=== PATIENT | female | born 1965 | race Caucasian/White ===

== ENCOUNTER 2016-12-26 03:55 | Emergency (ER) | payer OTHER ==
[~2016-12-26] VITALS: Ht 172.7 cm; Wt 90.7 kg
[~2016-12-26 03:55] MED LIST: ABILIFY10 MG PO; AMITRIPTYLINE25 MG PO; ASPIRIN81 M1 PO; BENADRYL50 MG PO; CELEXA10 MG PO; CELEXA20 MG PO; CELEXA40 MG PO; CLARITIN10 MG PO; COLACE100 M1 PO; COLACE250 MG PO; DEPAKOTE ER500 MG PO; DEPAKOTE500 M1 PO; DESYREL50 MG PO; DETROL LA4 MG PO; DITROPAN XL15 MG PO; DITROPAN5 MG PO; ELAVIL25 MG PO; FERROUS SULFAT325 MG PO; FLOVENT HF110 MCG/AC INH; HYDROCODONE BIT1 T55 PO; ISOSORBIDE DINIT PO; KLONOPIN0.5 MG PO; KLONOPIN1 MG PO; LASIX20 MG PO; LOPRESSOR25 MG PO; LYRICA75 MG PO; MIRAPEX0.25 MG PO; MIRAPEX0.5 MG PO; MOTRIN800 MG PO; NITROSTAT0.4 M1 SL; NORCO 5/325 MG1 TAB PO; NORTRIPTYLINE25 MG PO; ONE DAILY1 TA1 PO; OXYBUTYNIN5 M1 PO; PAMELOR25 M1 PO; PRILOSEC40 MG PO; QVAR HFA M80 MCG/ACT IH; RESTORIL15 MG PO; RESTORIL30 MG PO; ROBAXIN-750750 M1 PO; ROBAXIN-750750 MG PO; SEROQUEL XR400 MG PO; SEROQUEL100 MG PO; SEROQUEL200 MG PO; SEROQUEL400 MG PO; SEROQUEL50 MG PO; SYNTHROID0.075 MG PO; SYNTHROID0.088 MG PO; TOPAMAX25 M1 PO; TRAZADONE HYDR100 MG PO; TRAZODONE150 M1 PO; VENTOLIN H0.09 MG/Ac IH; ZANAFLEX CAPSULE4 MG PO; ZOCOR20 MG PO; ZOLOFT100 MG PO
--- NOTE | 2016-12-26 03:56 | NUR ---
PT MICHELA PIÑAS. TAKEN TO BED 4
[2016-12-26 03:58] VITALS: BP 144/76
[2016-12-26] MEDS ORDERED: SEROQUEL400 MG PO (04:22)
[2016-12-26] MEDS ORDERED: COLACE100 M1 PO (04:22)
[2016-12-26] MEDS ORDERED: PRILOSEC20 M2 PO (04:22)
[2016-12-26] MEDS ORDERED: DITROPAN5 MG PO (04:22)
[2016-12-26] MEDS ORDERED: SYNTHROID0.088 MG PO (04:22)
[2016-12-26] MEDS ORDERED: DEPAKOTE ER500 MG PO (04:22)
[2016-12-26] MEDS ORDERED: DILAUDID2 MG PO (04:22)
[2016-12-26] MEDS ORDERED: ROBAXIN-750750 MG PO ×2 (04:22)
[2016-12-26] MEDS ORDERED: DOXEPIN50 MG PO (04:22)
[2016-12-26] MEDS ORDERED: PAMELOR25 M1 PO (04:22)
[2016-12-26] MEDS ORDERED: OYSTER SHELL 51 EACH PO (04:22)
[2016-12-26] MEDS ORDERED: NEURONTIN600 MG PO (04:22)
[2016-12-26] MEDS ORDERED: KLONOPIN1 MG PO (04:22)
--- NOTE | 2016-12-26 04:44 | NUR ---
51/F biba from home c/o generalized weakness, arms trembling. Pt states "Look, my hands keep shaking." AOX4, clear speech. VSS.
--- NOTE | 2016-12-26 04:50 | NUR ---
Dr. Mcdaniel evaluating patient at bedside.
--- NOTE | 2016-12-26 05:37 | NUR ---
X-Ray at bedside.
[2016-12-26] MEDS ORDERED: HYDROmorphone 1 MG/ML AMP IVP ONE (05:55)
[2016-12-26] MEDS ORDERED: HYDROmorphone PFS 2 MG/ML SYR ONE (06:05)
--- NOTE | 2016-12-26 06:34 | NUR ---
DR. WOODS RE-EVALUATING PATIENT AT BEDSIDE.
[2016-12-26 06:51] VITALS: BP 147/93
--- NOTE | 2016-12-26 06:57 | NUR ---
Patient discharged with v/s stable. Written and verbal after care instructions given and explained. Patient alert, oriented and verbalized understanding of instructions. Ambulatory with steady gait. All questions addressed prior to discharge. ID band removed. Patient advised to follow up with PMD. Rx of CIPROFLOXACIN 500MG BID given. Patient educated on indication of medication including possible reaction and side effects. Opportunity to ask questions provided and answered.
[2016-12-29] MEDS ORDERED: SYNTHROID0.088 MG PO (13:26)
[2016-12-29] MEDS ORDERED: COUMADIN2 M1 PO (13:34)
[2016-12-29] MEDS ORDERED: ATORVASTATIN CA20 MG PO (13:34)
[2016-12-29] MEDS ORDERED: DEPAKOTE ER500 MG PO (13:35)
[2016-12-29] MEDS ORDERED: ASPIRIN ADULT L81 M1 PO (13:37)
== END 2016-12-26 06:57 | disposition home or self-care (01) ==
LOC: MED 03:55
DX: N39.0 Urinary tract infection, site not specified (principal); F31.9 Bipolar disorder, unspecified; J45.909 Unspecified asthma, uncomplicated; E11.9 Type 2 diabetes mellitus without complications; E05.90 Thyrotoxicosis, unspecified without thyrotoxic crisis or storm; Z88.0 Allergy status to penicillin; Z88.5 Allergy status to narcotic agent; Z88.8 Allergy status to other drugs, medicaments and biological substances; Z79.899 Other long term (current) drug therapy
CPT/HCPCS: 36415; 71010; 80053; 81001; 85025; 87086; 96374; 99285; J1170; Q0092

== ENCOUNTER 2016-12-26 09:03 | Inpatient (IN) | payer OTHER ==
[~2016-12-26] VITALS: Ht 172.7 cm; Wt 113.4 kg
[~2016-12-26 09:03] MED LIST changes: -ABILIFY10 MG PO; +ACET-3820 PO; +ALBU0.0912 IH; -AMITRIPTYLINE25 MG PO; +ASPI81CT89 PO; -ASPIRIN81 M1 PO; +BECL0.089 IH; -BENADRYL50 MG PO; +CALC-1380 PO; -CELEXA10 MG PO; -CELEXA20 MG PO; -CELEXA40 MG PO; -CLARITIN10 MG PO; +CLON1TAB PO; -COLACE100 M1 PO; -COLACE250 MG PO; -DEPAKOTE ER500 MG PO; -DEPAKOTE500 M1 PO; -DESYREL50 MG PO; -DETROL LA4 MG PO; +DIT5 PO; -DITROPAN XL15 MG PO; -DITROPAN5 MG PO; +DIVA500T1 PO; +DOCU-67 PO; +DOXE50CA10 PO; +ELA25 PO; -ELAVIL25 MG PO; -FERROUS SULFAT325 MG PO; -FLOVENT HF110 MCG/AC INH; +GABA600T1 PO; +HYDR2TAB6 PO; -HYDROCODONE BIT1 T55 PO; +IBUP-974 PO; +ISOS5TAB7 PO; -ISOSORBIDE DINIT PO; -KLONOPIN0.5 MG PO; -KLONOPIN1 MG PO; -LASIX20 MG PO; +LEVO0.083 PO; -LOPRESSOR25 MG PO; +LORA10TA19 PO; -LYRICA75 MG PO; +METH750T5 PO; +METO25TA PO; -MIRAPEX0.25 MG PO; -MIRAPEX0.5 MG PO; -MOTRIN800 MG PO; +NITR0.4T2 SL; -NITROSTAT0.4 M1 SL; -NORCO 5/325 MG1 TAB PO; -NORTRIPTYLINE25 MG PO; +OMEP20TC5 PO; +OMEP40EC1 PO; -ONE DAILY1 TA1 PO; -OXYBUTYNIN5 M1 PO; +PAM25 PO; -PAMELOR25 M1 PO; -PRILOSEC40 MG PO; +QUET400T PO; -QVAR HFA M80 MCG/ACT IH; -RESTORIL15 MG PO; -RESTORIL30 MG PO; -ROBAXIN-750750 M1 PO; -ROBAXIN-750750 MG PO; -SEROQUEL XR400 MG PO; -SEROQUEL100 MG PO; -SEROQUEL200 MG PO; -SEROQUEL400 MG PO; -SEROQUEL50 MG PO; +SIMV20TA1 PO; -SYNTHROID0.075 MG PO; -SYNTHROID0.088 MG PO; +TEMA30CA23 PO; -TOPAMAX25 M1 PO; -TRAZADONE HYDR100 MG PO; -TRAZODONE150 M1 PO; -VENTOLIN H0.09 MG/Ac IH; -ZANAFLEX CAPSULE4 MG PO; -ZOCOR20 MG PO; -ZOLOFT100 MG PO; +[UNRECOGNIZED DRUG - CODE] PO
--- NOTE | 2016-12-26 09:03 | NUR ---
Patient BIBA to bed 6 at this time.
[2016-12-26 09:05] VITALS: BP 146/102
--- NOTE | 2016-12-26 09:06 | NUR ---
51F BIBA FROM HOME C/O LACERATION TO RT CHIN, SHARP, NON-RADIATING, 10/10 X THIS MORNING; NO BLEEDING NOTED TO SITE AT THIS TIME; PT STATES LOC "FOR ABOUT A MINUTE"; DENIES VISION LOSS OR VISION CHANGES AT THIS TIME; PT NOTED W/ LAC TO RT CHIN, RED DISCOLORATION TO LFT EYELID/LFT EAR, SCRAPE TO RT ARM FROM FALL; NO BLEEDING TO SCRAPE AT THIS TIME; PT HAS AMPUTATION BELOW LFT KNEE W/ ARTIFICIAL LEFT LEG NOTED; PT NOTED W/ SWELLING TO RT ANKLE, NON-PITTING; PT STATES "I'VE HAD THAT FOR A LONG TIME"; PT STATES SEEN IN [facility] ER FOR UTI AND D/C THIS MORNING; PT A&OX4, PERRLA, BL LUNG SOUNDS CLEAR, RR EVEN/UNLABORED, DENIES N/V/D AT THIS TIME; PT RESTING IN BED W/ HOB ELEVATED AND IN LOWEST POSITION; POSITIONED FOR COMFORT; ER MD MADE AWARE OF STATUS. WILL CONTINUE TO MONITOR.
[2016-12-26] MEDS ORDERED: LIDOCAINE 1% 500 MG/50 ML VIAL INJ ONE (09:10)
--- NOTE | 2016-12-26 09:20 | NUR ---
ER MD DR PAML AT BEDSIDE FOR LACERATION REPAIR.
[2016-12-26] MEDS ORDERED: NEOMYCIN/POLYMYXIN/BACITRACIN 0.9 GM/1 PKT TP ONE (09:34)
--- NOTE | 2016-12-26 09:58 | NUR ---
PT TAKEN TO CT VIA GURMINOO ACCOMPANIED BY [facility] AT THIS TIME.
--- NOTE | 2016-12-26 10:24 | NUR ---
PT RETURNED FROM CT VIA RNEY ACCOMPANIED BY [facility].
[2016-12-26] MEDS ORDERED: ACETAMINOPHEN 325 MG TAB PO PRN (10:50)
[2016-12-26] MEDS ORDERED: HYDROcodone/APAP 7.5/325 MG 1 TAB PO PRN (10:50)
[2016-12-26] MEDS ORDERED: MECLIZINE 25 MG TAB PO PRN (10:50)
[2016-12-26] MEDS ORDERED: ONDANSETRON 4 MG/2 ML VIAL IVP PRN (10:50)
[2016-12-26 11:19] LABS: HEMATOCRIT 36.4 % (36-48); MEAN CORPUSCULAR HEMOGLOBIN 33 pg (27-31); MEAN CORPUSCULAR HGB CONC 33 g/dL (33-37); MEAN CORPUSCULAR VOLUME 100 fL (80-94); PLATELET COUNT (AUTO) 126 K/uL (140-450); RED BLOOD CELL COUNT(AUTO) 3.64 MIL/uL (4.20-5.40); RED CELL DISTRIBUTION WIDTH 13.4 % (11.6-13.7); WHITE BLOOD COUNT (AUTO) 7.3 K/uL (4.8-10.8)
[2016-12-26 11:30] LABS: ANION GAP 12.1 (8-16); CALCIUM 8.9 mg/dL (8.5-10.1); CARBON DIOXIDE 28.1 mmol/L (21-32); CREATININE 0.9 mg/dL (0.6-1.3); POTASSIUM 4.2 mmol/L (3.5-5.1)
[2016-12-26 11:33] LABS: BAND % (MANUAL) 10 % (0-8); LYMPHOCYTES % (MANUAL) 14 % (20-46); MONOCYTES % (MANUAL) 4 % (5-12); NEUTROPHILS % (MANUAL) 72 (43-65)
--- NOTE | 2016-12-26 11:33 | NUR ---
REPORT GIVEN TO JOSE LUIS TREVIÑO; PT TO BE TAKEN TO FLOOR IN 10 MINUTES NURSE ASSIGNED TO PT ON BREAK.
[2016-12-26 11:36] LABS: INR 1.1 (0.8-1.2); PARTIAL THROMBOPLASTIN TIME 27.4 secs (22-35.6); PROTHROMBIN TIME 10.3 secs (10.8-13.4)
[2016-12-26 11:45] LABS: ALBUMIN 3.2 g/dL (3.4-5.0); TOTAL BILIRUBIN 0.4 mg/dL (0.0-1.0); TOTAL PROTEIN, SERUM 6.9 g/dL (6.4-8.2)
--- NOTE | 2016-12-26 11:46 | NUR ---
Patient will be admitted to care of DR. CHRISTENSEN. Admited to TELEMETRY . Will go to room 107B. Belongings list completed. Report to JOSE LUIS TREVIÑO.
[2016-12-26 12:00] VITALS: BP 134/87
--- NOTE | 2016-12-26 12:00 | NUR ---
RECEIVED PT FROM ER ASSISTED BY RN STACY RANDALL. AWAKE, ALERT, ORIENTED X4. NO SOB NOTED. DENIES ANY PAIN OR DISCOMFORT AT THIS TIME. POSITIVE BOWEL SOUNDS NOTED ON 4 QUADRANTS. TELEBOX MONITOR PADS ATTACHED. HOOKED TO IVF. BODY ASSESSMENT DONE, PHOTOS TAKEN FOR RIGHT CHIN LACERATION WITH 5 STICHES, AND BOTH LEFT AND RIGHT EAR ABRASIONS. SAFETY PRECAUTION IN PLACE. CALL LIGHT WITHIN REACH. OFF BONY PROMINENCE. REPOSITIONED TO PT COMFORT.
[2016-12-26 12:02] LABS: CHOL/HDL RATIO 4.4 (1-4.5); FREE T4 (FREE THYROXINE) 0.72 ng/dL (0.76-1.46); MAGNESIUM 1.7 mg/dL (1.8-2.4); PHOSPHORUS 3.2 mg/dL (2.5-4.9); THYROID STIMULATING HORMONE 9.08 uIU/mL (0.34-3.76)
--- NOTE | 2016-12-26 13:00 | NUR ---
FREQUENT VISUAL CHECKS DONE. OFFERED PT BEDPAN NEEDED. PT VOIDED CLEAR YELLOW URINE, WITH URGENCY AND FREQUENCY.
[2016-12-26] MEDS: NACL 0.9% 1,000 ML IV SCH (13:09)
[2016-12-26] MEDS ORDERED: ALBUTEROL SULFATE/IPRATROPIU 3 ML SOL IH PRN (13:20)
[2016-12-26 14:41] LABS: AMPHETAMINE, URINE NEG. ng/ml (NEG <=1000); BARBITURATE, URINE NEG. ng/ml (NEG <=200); BENZODIAZEPINE, URINE NEG. ng/mL (NEG <=200); CANNABINOID, URINE NEG. ng/mL (NEG <=50); COCAINE, URINE NEG. ng/mL (NEG <=300); OPIATE, URINE NEG. ng/mL (NEG <=2000); PHENCYCLIDINE SCREEN,URINE NEG. ng/mL (NEG <=25)
[2016-12-26] MEDS ORDERED: MAGNESIUM OXIDE 400 MG TAB PO SCH (15:00)
[2016-12-26] MEDS ORDERED: clonazePAM 0.5 MG TAB PO PRN (15:15)
--- NOTE | 2016-12-26 15:30 | NUR ---
IV ON LEFT WRIST G24 GOT DISLODGED. NO BLEEDING NOTED. CANNULA REMOVED AND INTACT. REINSERTED IV ON RIGHT HAND G24 NS RUNNING AT 50 ML /HR. PATENT AND INTACT.
[2016-12-26] MEDS ORDERED: LORazepam 2 MG/ML VIAL IM/IVP PRN (15:35)
[2016-12-26 16:00] VITALS: BP 115/77
[2016-12-26] MEDS: HYDROmorphone 1 MG/ML AMP IVP PRN ×2 (16:12→21:04)
[2016-12-26] MEDS: OXYBUTYNIN 5 MG TAB PO SCH (17:36)
--- NOTE | 2016-12-26 19:25 | NUR ---
PT AWAKE, IN BED, WATCHING TV. NO SOB NOTED. DENIES ANY PAIN OR DISCOMFORT AT THIS TIME. PT KEPT CLEAN, DRY AND COMFORTABLE, NEEDS ATTENDED. PT ON STABLE CONDITION. ENDORSED TO TAXICAB STARTER FOR CONTINUITY OF CARE.
--- NOTE | 2016-12-26 19:30 | NUR ---
RECEIVED REPORT FROM DAY RN AT BEDSIDE, PATIENT IS AAOX4, RESTING IN BED ON ROOM AIR, NO SOB OR SIGN OF DISTRESS, IV PATENT AND INTACT, SKIN NON-INTACT, 3 STITCHES NOTED TO PATIENTS CHIN, INTACT NO DRAINAGE, MULTIPLE BRUISES TO PATIENTS BODY S/P FALLS, NOTED LEFT BELOW KNEE AMPUTATION WITH PROSTHESIS. SWELLING TO THE RIGHT LEG. PATIENT COMPLAINS OF PAIN TO BACK AND RIGHT LEG AND FACE STATING FROM FALL.WILL MEDICATE, DISCUSSED PLAN OF CARE WITH PATIENT, PATIENT VERBALIZED UNDERSTANDING, CALL LIGHT WITHIN REACH. WILL CONTINUE TO MONITOR.
[2016-12-26 20:00] VITALS: BP 119/70
[2016-12-26] MEDS ORDERED: DOCUSATE SODIUM 100 MG GELCAP PO SCH (21:00)
[2016-12-26] MEDS: QUEtiapine FUMARATE 100 MG TAB PO SCH (21:02)
[2016-12-26] MEDS: DOCUSATE SODIUM 100 MG GELCAP PO SCH (21:03)
[2016-12-26] MEDS: CALCIUM CARB/VIT-D 500 MG/200 IU 1 TAB PO SCH (21:03)
[2016-12-26] MEDS: DIVALPROEX 500 MG TABER PO SCH (21:04)
--- NOTE | 2016-12-26 21:18 | NUR ---
PM MEDS ADMINISTERED, PATIENT TOLERATED WELL, WILL CONTINUE TO MONITOR
--- NOTE | 2016-12-26 21:40 | NUR ---
PAGED DR CHRISTENSEN, PATIENT REQUESTING A HOME MEDICATION TO HELP HER SLEEP. DR CHRISTENSEN STATED TO PUT IN A TELEPHONE ORDER FOR PATIENT'S HOME MEDICATION DOXEPIN 100MG PO HS DAILY, CLARIFIED WITH DR ABOUT PUTTING IN ORDERS FOR FR DALIA GROUP DR CHRISTENSEN STATED IT WAS OKAY AND HE IS GIVING ME THE OKAY TO PUT IN THE TELEPHONE ORDER.
[2016-12-26] MEDS: DOXEPIN 25 MG CAP PO SCH (21:45)
[2016-12-27] VITALS: BP 103/63
--- NOTE | 2016-12-27 00:20 | NUR ---
VITAL SIGNS STABLE, NO SOB OR SIGN OF DISTRESS AT THIS TIME, CALL LIGHT WITHIN REACH. WILL CONTINUE TO MONITOR
--- NOTE | 2016-12-27 02:32 | NUR ---
PATIENT SLEEPING, NO SIGN OF DISTRESS, CALL LIGHT WITHIN REACH. WILL CONTINUE TO MONITOR.
[2016-12-27] MEDS: HYDROmorphone 1 MG/ML AMP IVP PRN ×5 (02:50→16:24)
[2016-12-27 04:00] VITALS: BP 112/62
--- NOTE | 2016-12-27 04:20 | NUR ---
VITAL SIGNS STABLE, NO SOB OR SIGN OF DISTRESS, CALL LIGHT WITHIN REACH. WILL CONTINUE TO MONITOR.
[2016-12-27] MEDS: LEVOTHYROXINE 0.088 MG TAB PO SCH (06:37)
[2016-12-27] MEDS: NACL 0.9% 1,000 ML IV SCH ×2 (06:49→12:45)
[2016-12-27 07:17] LABS: BASOPHILS # (AUTO) 0.1 K/uL (0.00-0.22); BASOPHILS % (AUTO) 1.8 % (0.0-2.0); EOSINOPHILS % (AUTO) 0.7 % (0.0-4.0); HEMATOCRIT 34.3 % (36-48); HEMOGLOBIN 11.3 g/dL (12.0-16.0); LYMPHOCYTES # (AUTO) 1.4 K/uL (2.5-16.5); LYMPHOCYTES % (AUTO) 30.4 % (20.5-51.1); MEAN CORPUSCULAR HEMOGLOBIN 33 pg (27-31); MEAN CORPUSCULAR HGB CONC 33 g/dL (33-37); MEAN CORPUSCULAR VOLUME 99 fL (80-94); MONOCYTES # (AUTO) 0.3 K/uL (0.8-1.0); MONOCYTES % (AUTO) 6.6 % (1.7-9.3); NEUTROPHILS # (AUTO) 2.7 K/uL (1.8-7.7); NEUTROPHILS % (AUTO) 60.5 % (42.2-75.2); PLATELET COUNT (AUTO) 145 K/uL (140-450); RED BLOOD CELL COUNT(AUTO) 3.46 MIL/uL (4.20-5.40); RED CELL DISTRIBUTION WIDTH 13.6 % (11.6-13.7); WHITE BLOOD COUNT (AUTO) 4.5 K/uL (4.8-10.8)
--- NOTE | 2016-12-27 07:30 | NUR ---
ENDORSED PATIENT TO DAY RN AT BEDSIDE, PATIENT IN STABLE CONDITION
--- NOTE | 2016-12-27 07:32 | NUR ---
RECEIVED REPORT FROM NIGHT JOSE LUIS PAGE. PT SLEEPING IN BED. NO S/S OF ACUTE DISTRESS. PT DENIES PAIN. IV SITE PATENT AND INTACT. LEFT BKA NOTED. BAND AID TO CHIN NOTED. DRY AND INTACT. BRUISE UNDER RIGHT EYE NOTED. RIGHT LEG SWELLING. TELE BOX IN PLACE. CALL LIGHT WITHIN REACH. SAFETY MEASURES ENSURED. WILL CONTINUE TO MONITOR.
[2016-12-27 07:35] LABS: ANION GAP 10.5 (8-16); CALCIUM 8.7 mg/dL (8.5-10.1); CARBON DIOXIDE 29.2 mmol/L (21-32); POTASSIUM 3.7 mmol/L (3.5-5.1)
[2016-12-27 07:40] VITALS: BP 107/64
[2016-12-27 07:40] LABS: MAGNESIUM 1.8 mg/dL (1.8-2.4); PHOSPHORUS 3.2 mg/dL (2.5-4.9)
[2016-12-27] MEDS ORDERED: PANTOPRAZOLE 40 MG TABEC PO SCH (08:00)
[2016-12-27] MEDS ORDERED: PANTOPRAZOLE 40 MG INJ VIAL IVP SCH (09:00)
[2016-12-27] MEDS: OXYBUTYNIN 5 MG TAB PO SCH ×3 (09:31→17:21)
[2016-12-27] MEDS: PANTOPRAZOLE 40 MG TABEC PO SCH (09:31)
--- NOTE | 2016-12-27 09:40 | NUR ---
PT RESTING IN BED. RAILROAD INSPECTOR JOHN AT BEDSIDE. PT STATES PAIN 10/10 IN HER BACK. MEDICATED ORDERED. PT REPOSITIONED BEST POSSIBLE DUE TO ECHO. AM MEDICATIONS GIVEN WITH EDUCATION. PT VERBALIZED UNDERSTANDING. CALL LIGHT WITHIN REACH. SAFETY MEASURES ENSURED. WILL CONTINUE TO MONITOR.
--- NOTE | 2016-12-27 09:57 | NUR ---
FAXED INITIAL REVIEW TO [facility] [phone] PHONE [phone] LOKI Colon [id number] ABDELRAHMAN [id number]
--- NOTE | 2016-12-27 10:06 | NUR ---
PATIENT HAS BEEN SCREENED AND CATEGORIZED LOW NUTRITION RISK. PATIENT WILL BE SEEN WITHIN 7 DAYS OF ADMISSION. 01/01/[address] Addendum: 12/27/16 at [address] PATIENT HAS BEEN RE-SCREENED AND MEETS MODERATE RISK CRITERIA. PATIENT WILL BE SEEN WITHIN 5 DAYS OF ADMISSION. 12/28/16-12/30/[address]
--- NOTE | 2016-12-27 11:37 | NUR ---
PT SLEEPING IN BED. NO S/S OF ACUTE DISTRESS. CALL LIGHT WITHIN REACH. SAFETY MEASURES ENSURED. WILL CONTINUE TO MONITOR.
[2016-12-27 11:41] LABS: APPEARANCE,URINE HAZY (CLEAR); BILIRUBIN,URINE NEGATIVE (NEGATIVE); BLOOD, URINE NEGATIVE (NEGATIVE); COLOR,URINE YELLOW (YELLOW); LEUKOCYTE ESTERASE ,URINE TRACE (NEGATIVE); NITRITE, URINE POSITIVE (NEGATIVE); PH,URINE 7.5 (5.0-9.0); PROTEIN,URINE NEGATIVE (NEGATIVE); UGLUCOSE NEGATIVE (NEGATIVE); UROBILINOGEN,URINE 0.2 EU/dL (0.2 - 1)
[2016-12-27 11:57] LABS: BACTERIA,URINE 4+ /HPF (None Seen); RBC,URINE NONE SEEN /HPF (0-5)
[2016-12-27 11:58] LABS: SQUAMOUS EPITHELIAL CELL,UR 4-10 (MOD) /LPF (0-3 (FEW))
[2016-12-27 12:00] VITALS: BP 134/86
--- NOTE | 2016-12-27 12:16 | NUR ---
PHYSICAL THERAPY IN WITH PT. PT ASSISTED TO CHAIR AT BEDSIDE TO EAT LUNCH.
[2016-12-27] MEDS ORDERED: LACTOBACILLUS RHAMNOSUS GG 1 EACH CAP PO SCH (14:27)
[2016-12-27 16:00] VITALS: BP 119/73
--- NOTE | 2016-12-27 16:55 | NUR ---
PT SLEEPING IN BED. NO S/S OF ACUTE DISTRESS. CALL LIGHT WITHIN REACH. SAFETY MEASURES ENSURED. WILL CONTINUE TO MONITOR.
[2016-12-27] MEDS: FERROUS SULFATE 325 MG TABEC PO SCH (17:22)
--- NOTE | 2016-12-27 19:28 | NUR ---
ENDORSED PLAN OF CARE TO NIGHT RN. PT REMAINS IN STABLE CONDITION.
--- NOTE | 2016-12-27 19:30 | NUR ---
RECEIVED REPORT FROM DAY RN AT BEDSIDE, PATIENT IS RESTING IN BED AAOX4 ON ROOM AIR NO SOB OR SIGN OF DISTRESS AT THIS TIME, PATIENT HAS IV TO RIGHT HAND PATENT AND INTACT. SKIN NON INTACT WITH STITCHES TO CHIN, COVERED WITH BAND-AID DRY AND INTACT. BRUISING TO FACE AND EAR. RIGHT LEG SWELLING NOTED. PREVIOUS LEFT LEG BELOW KNEE AMPUTATION WITH PROSTHETIC LEG. PATIENT STATES SHE HAS PAIN, WILL MEDICATE PER MD ORDER, DISCUSSED PLAN OF CARE WITH PATIENT, PATIENT VERBALIZED UNDERSTANDING, SAFETY MEASURES CHECKED, BED ALARM ON, CALL LIGHT WITHIN REACH. WILL CONTINUE TO MONITOR.
[2016-12-27 20:00] VITALS: BP 95/56
[2016-12-27] MEDS: ATORVASTATIN 20 MG TAB PO SCH (20:13)
[2016-12-27] MEDS: QUEtiapine FUMARATE 100 MG TAB PO SCH (20:13)
[2016-12-27] MEDS: DIVALPROEX 500 MG TABER PO SCH (20:14)
[2016-12-27] MEDS: CALCIUM CARB/VIT-D 500 MG/200 IU 1 TAB PO SCH (20:14)
[2016-12-27] MEDS: DOCUSATE SODIUM 100 MG GELCAP PO SCH (20:14)
[2016-12-27] MEDS: DOXEPIN 25 MG CAP PO SCH (20:15)
--- NOTE | 2016-12-27 20:26 | NUR ---
PM MEDS ADMINISTERED, PATIENT TOLERATED WELL, PATIENT RESTING IN BED, CALL LIGHT WITHIN REACH. WILL CONTINUE TO MONITOR
--- NOTE | 2016-12-27 22:30 | NUR ---
PATIENT SLEEPING, NO SIGN OF DISTRESS, CALL LIGHT WITHIN REACH. WILL CONTINUE TO MONITOR.
[2016-12-28] VITALS (7 sets, daily range): BP systolic 88–134; BP diastolic 58–83
--- NOTE | 2016-12-28 | NUR ---
VITAL SIGNS STABLE, NO SIGN OF DISTRESS, CALL LIGHT WITHIN REACH. WILL CONTINUE TO MONITOR
--- NOTE | 2016-12-28 02:19 | NUR ---
PATIENT SLEEPING, NO SIGN OF DISTRESS, CALL LIGHT WITHIN REACH. WILL CONTINUE TO MONITOR.
[2016-12-28] MEDS ORDERED: NACL 0.9% 1,000 ML IV SCH (04:35)
--- NOTE | 2016-12-28 04:35 | NUR ---
CHECKED PATIENT'S VITAL SIGNS, BP LOW AT 88/61 HR 83. RECHECKED ON OTHER ARM BP DROPPED TO 78/56, PATIENT ASYMPTOMATIC, AAOX4, STATED SHE HAD A LITTLE DIZZINESS BUT FELT FINE, PAGED DR CHRISTENSEN, RECEIVED ORDERS TO GIVE 1L NORMAL SALINE BOLUS ONE TIME AND TO HOLD OFF ON BLOOD PRESSURE MEDS AND PAIN MEDS AT THIS TIME. DR CHRISTENSEN GAVE THE OKAY TO PUT IN THE TELEPHONE ORDER. WILL FOLLOW UP WITH ORDER AND MONITOR PATIENT.
[2016-12-28] MEDS: LEVOTHYROXINE 0.088 MG TAB PO SCH (05:46)
--- NOTE | 2016-12-28 05:58 | NUR ---
BOLUS FINISHED RECHECKED BLOOD PRESSURE, AT 101/56 HR 73. PATIENT RESTING IN BED, WILL CONTINUE TO MONITOR.
--- NOTE | 2016-12-28 07:20 | NUR ---
ENDORSED PATIENT TO DAY RN AT BEDSIDE, PATIENT IN STABLE CONDITION
--- NOTE | 2016-12-28 07:22 | NUR ---
RECEIVED REPORT FROM NIGHT RN. PT SLEEPING IN BED. NO S/S OF ACUTE DISTRESS. . AAOX4. LEFT BKA. RIGHT LEG SWELLING NOTED. IV SITE PATENT AND INTACT. BRUISING TO RIGHT EYE NOTED. BANDAGE TO CHIN DRY AND INTACT. CALL LIGHT WITHIN REACH. SAFETY MEASURES ENSURED. WILL CONTINUE TO MONITOR.
[2016-12-28 07:26] LABS: ANION GAP 13.2 (8-16); CALCIUM 8.2 mg/dL (8.5-10.1); CREATININE 0.8 mg/dL (0.6-1.3); POTASSIUM 4.2 mmol/L (3.5-5.1)
[2016-12-28 07:50] LABS: BASOPHILS # (AUTO) 0.2 K/uL (0.00-0.22); EOSINOPHILS # (AUTO) 0.1 K/uL (0-0.4); MONOCYTES # (AUTO) 0.2 K/uL (0.8-1.0)
[2016-12-28 08:23] LABS: BASOPHILS % (AUTO) 4.4 % (0.0-2.0); EOSINOPHILS % (AUTO) 3.4 % (0.0-4.0); HEMATOCRIT 31.8 % (36-48); HEMOGLOBIN 10.7 g/dL (12.0-16.0); LYMPHOCYTES # (AUTO) 1.6 K/uL (2.5-16.5); LYMPHOCYTES % (AUTO) 41.9 % (20.5-51.1); MEAN CORPUSCULAR HEMOGLOBIN 34 pg (27-31); MEAN CORPUSCULAR HGB CONC 34 g/dL (33-37); MEAN CORPUSCULAR VOLUME 99 fL (80-94); MONOCYTES % (AUTO) 6.7 % (1.7-9.3); NEUTROPHILS # (AUTO) 1.6 K/uL (1.8-7.7); NEUTROPHILS % (AUTO) 43.6 % (42.2-75.2); PLATELET COUNT (AUTO) 100 K/uL (140-450); RED CELL DISTRIBUTION WIDTH 13.5 % (11.6-13.7); WHITE BLOOD COUNT (AUTO) 3.7 K/uL (4.8-10.8)
[2016-12-28] MEDS: PANTOPRAZOLE 40 MG TABEC PO SCH (08:26)
[2016-12-28] MEDS: ASPIRIN 81 MG TAB.CHEW PO SCH (08:26)
[2016-12-28] MEDS: OXYBUTYNIN 5 MG TAB PO SCH ×3 (08:26→16:34)
--- NOTE | 2016-12-28 08:26 | NUR ---
AM MEDICATIONS GIVEN WITH EDUCATION. PT VERBALIZED UNDERSTANDING. NO S/S OF ACUTE DISTRESS. PT TOLERATED WELL. WILL CONTINUE TO MONITOR.
[2016-12-28] MEDS: LACTOBACILLUS RHAMNOSUS GG 1 EACH CAP PO SCH (08:27)
[2016-12-28] MEDS: FERROUS SULFATE 325 MG TABEC PO SCH ×2 (08:27→16:34)
[2016-12-28 08:56] LABS: MAGNESIUM 1.8 mg/dL (1.8-2.4); PHOSPHORUS 3.9 mg/dL (2.5-4.9)
--- NOTE | 2016-12-28 09:58 | NUR ---
FAXED CONCURRENT REVIEW TO [facility] [phone] PHONE [phone] LOKI [id number] ABDELRAHMAN [id number] JAMES, PATIENT SUPPORT SPECIALIST SPOKE WITH LOKI ABOUT CAM BOOT AND SNF. [email or web address] [employer] [facility] . [facility], [facility]
--- NOTE | 2016-12-28 10:28 | NUR ---
FAXED CONCURRENT REVIEW TO [facility] [phone] PHONE [phone] X [phone] LOKI [employer] CALLED FOR CAM BOOT. PER JUSTIN , THEY DO NOT DO BOOTS. LEFT MESSAGE FOR LOKI AT [facility].
--- NOTE | 2016-12-28 11:16 | NUR ---
SPOKE WITH YUAN FROM [facility]. FOR THE CAM BOOT, TRY [facility] [phone]. I CALLED AND SPOKE WITH DAVID AND FAXED FACE SHEET ORDER HEIGHT AND WEIGHT AND SHOE SIZE TO HER AT [phone].
--- NOTE | 2016-12-28 11:28 | NUR ---
LEFT MESSAGE FOR [facility] REGARDING HOLD ON DISCHARGE. AWAITING CALL BACK Addendum: 12/28/16 at 1516 by Oz Art RN WRONG PATIENT
--- NOTE | 2016-12-28 11:34 | NUR ---
PT RESTING IN BED. NO S/S OF ACUTE DISTRESS. PT DENIES PAIN. CALL LIGHT WITHIN REACH. WILL CONTINUE TO MONITOR.
[2016-12-28] MEDS ORDERED: HEPARIN PER PHARMACY MC PRN (11:50)
[2016-12-28 12:20] LABS: FOLIC ACID 3.1 ng/mL (>3.0)
[2016-12-28 13:37] LABS: PROTHROMBIN TIME 9.8 secs (10.8-13.4)
--- NOTE | 2016-12-28 13:50 | NUR ---
PT RESTING IN BED. NO S/S OF ACUTE DISTRESS. PT DENIES PAIN. CALL LIGHT WITHIN REACH. SAFETY MEASURES ENSURED. WILL CONTINUE TO MONITOR.
--- NOTE | 2016-12-28 15:16 | NUR ---
RECEIVED CALL EARLIER FROM [facility], AND THEY CAN GET THE PATIENT THE CAM BOOT. THEY NEED AND AUTH FROM [facility]. I LEFT 3 MESSAGES FOR LOKI AT [facility] TO [facility] THE [facility]. NO CALL BACK, [facility] ALSO NO CALL BACK. I CALLED JOHN AT [facility] AND LEFT A MESSAGE, NO CALL BACK. ADRIANA FROM [facility] SAID THAT THE # FOR THE CAM BOOT IS [id number]. SHE ALSO SAID THAT THE CAM BOOT WILL COME FROM THE [facility] OFFICE AND TO HAVE [facility] CALL KERRY AT [phone] FAX [phone]. I LEFT A MESSAGE FOR LOKI AT [facility]. LOKI [facility] [phone] [id number] ABDELRAHMAN [id number]
[2016-12-28 15:28] LABS: PARTIAL THROMBOPLASTIN TIME 20.7 secs (22-35.6)
--- NOTE | 2016-12-28 16:14 | NUR ---
RECEIVED A CALL FROM YUAN FROM [facility]. SHE SAID SHE FAXED THE AUTH TO [facility]. THE AUTH NUMBER IS [id number]. I CALLED KERRY AT THE [facility] OFFICE AND SHE SAID THAT THEY WILL HAVE NEIL BRING THE CAM BOOT AT ABOUT 5P.M. TODAY. SCOTTY AMAYACRA OFFICER NURSE AWARE.
--- NOTE | 2016-12-28 16:18 | NUR ---
PT RESTING IN BED. NO S/S OF ACUTE DISTRESS. PT DENIES PAIN. CALL LIGHT WITHIN REACH. SAFETY MEASURES ENSURED. WILL CONTINUE TO MONITOR.
[2016-12-28] MEDS: hePARIN / DEXT 5% PREMIX 250 ML IV SCH (16:58)
[2016-12-28] MEDS ORDERED: WARFARIN 2 MG TAB PO SCH (17:00)
--- NOTE | 2016-12-28 17:16 | NUR ---
ALYSHA SOLANO DELIVERED AND PLACED ON PT.
--- NOTE | 2016-12-28 19:30 | NUR ---
ENDORSED PLAN OF CARE TO NIGHT RN. PT REMAINS IN STABLE CONDITION.
--- NOTE | 2016-12-28 19:32 | NUR ---
RECEIVED PT IN STABLE CONDITION FROM AM NURSE. AWAKE,ALERT AND ORIENTED X4. ON TELE MONITOR. BEDREST DUE TO WEAKNESS. WITH NO C/O OF ANY DISCOMFORT NOR PAIN NOTED . IVF NS @50 ML/HR INFUSING ON THE RT HAND#24 AND HEPARIN DRIP ON THE LT WRIST #24 . BOTH ARE CLEAR AND PATENT. RT FOOT SWOLLEN WITH BOOT, ELEVATED ON PILLOW . AND LT BKA. PLAN OF CARE DISCUSSED AND VERBALIZED UNDERSTANDING. BED ON LOW POSITION, SIDE RAILS UP X2. CALL LIGHT PLACED WITHIN EASY REACH. WILL CONTINUE TO MONITOR.
[2016-12-28] MEDS: HYDROmorphone 1 MG/ML AMP IVP PRN (20:47)
[2016-12-28] MEDS: DOCUSATE SODIUM 100 MG GELCAP PO SCH (20:47)
[2016-12-28] MEDS: ATORVASTATIN 20 MG TAB PO SCH (20:48)
[2016-12-28] MEDS: DIVALPROEX 500 MG TABER PO SCH (20:48)
[2016-12-28] MEDS: QUEtiapine FUMARATE 100 MG TAB PO SCH (20:49)
[2016-12-28] MEDS: CALCIUM CARB/VIT-D 500 MG/200 IU 1 TAB PO SCH (20:49)
[2016-12-28] MEDS: DOXEPIN 25 MG CAP PO SCH (21:00)
--- NOTE | 2016-12-28 21:00 | NUR ---
PT TOOK ALL DUE MEDS TONIGHT. C/O PAIN . GIVEN PAIN MED. WILL CONTINUE TO MONITOR.
[2016-12-28] MEDS: NACL 0.9% 1,000 ML IV SCH (22:47)
--- NOTE | 2016-12-28 23:15 | NUR ---
BLOOD WAS DRAWN FOR APTT. WILL FOLLOW UP RESULT.
--- NOTE | 2016-12-29 00:55 | NUR ---
FOLLOW UP RESULT OF APTT FROM LAB. RESULT GREATER 150. HEPARIN DRIP PUT ON HOLD PER PROTOCOL. THEN WILL RESTART AFTER I HOUR WITH REDUCE DRIP OF 300 UNITS /HR.
[2016-12-29] MEDS: hePARIN / DEXT 5% PREMIX 250 ML IV SCH ×2 (02:02→09:29)
[2016-12-29] MEDS: NACL 0.9% 1,000 ML IV SCH (02:03)
--- NOTE | 2016-12-29 03:15 | NUR ---
PT IS ASLEEP. NO S/S OF ANY DISCOMFORT NOR PAIN NOTED.
[2016-12-29 04:05] VITALS: BP 114/79
--- NOTE | 2016-12-29 05:00 | NUR ---
MADE ROUNDS . SLEEPING WELL. NO S/S OF DISCOMFORT NOTED.
[2016-12-29] MEDS: LEVOTHYROXINE 0.088 MG TAB PO SCH (07:03)
--- NOTE | 2016-12-29 07:14 | NUR ---
ENDORSED PT IN STABLE CONDITION TO AM NURSE.
--- NOTE | 2016-12-29 07:16 | NUR ---
RECEIVED REPORT FROM VASHTI RN. PT RESTING IN BED. AAOX4. NO S/S OF ACUTE DISTRESS. PT DENIES PAIN AT THIS TIME. IV SITES PATENT AND INTACT. STITCHES TO CHIN NOTED. CAM BOOT TO RIGHT LEG NOTED. LEFT BKA. CALL LIGHT WITHIN REACH. TELE BOX IN PLACE. SAFETY MEASURES ENSURED. WILL CONTINUE TO MONITOR.
[2016-12-29 07:31] LABS: ANION GAP 10.7 (8-16); CALCIUM 8.7 mg/dL (8.5-10.1); CARBON DIOXIDE 29.2 mmol/L (21-32); CREATININE 0.9 mg/dL (0.6-1.3); POTASSIUM 3.9 mmol/L (3.5-5.1)
[2016-12-29 07:46] LABS: INR 1.1 (0.8-1.2); PROTHROMBIN TIME 10.4 secs (10.8-13.4)
[2016-12-29 07:48] LABS: BASOPHILS % (AUTO) 0.8 % (0.0-2.0); EOSINOPHILS # (AUTO) 0.1 K/uL (0-0.4); EOSINOPHILS % (AUTO) 2.6 % (0.0-4.0); HEMATOCRIT 32.9 % (36-48); HEMOGLOBIN 10.8 g/dL (12.0-16.0); LYMPHOCYTES # (AUTO) 1.8 K/uL (2.5-16.5); LYMPHOCYTES % (AUTO) 43.3 % (20.5-51.1); MEAN CORPUSCULAR HEMOGLOBIN 32 pg (27-31); MEAN CORPUSCULAR HGB CONC 33 g/dL (33-37); MEAN CORPUSCULAR VOLUME 99 fL (80-94); MONOCYTES # (AUTO) 0.3 K/uL (0.8-1.0); MONOCYTES % (AUTO) 7.9 % (1.7-9.3); NEUTROPHILS # (AUTO) 1.9 K/uL (1.8-7.7); NEUTROPHILS % (AUTO) 45.4 % (42.2-75.2); PLATELET COUNT (AUTO) 122 K/uL (140-450); RED BLOOD CELL COUNT(AUTO) 3.33 MIL/uL (4.20-5.40); RED CELL DISTRIBUTION WIDTH 13.7 % (11.6-13.7); WHITE BLOOD COUNT (AUTO) 4.1 K/uL (4.8-10.8)
[2016-12-29 07:52] VITALS: BP 142/88
[2016-12-29 07:54] LABS: MAGNESIUM 1.9 mg/dL (1.8-2.4); PHOSPHORUS 4.2 mg/dL (2.5-4.9)
[2016-12-29] MEDS: LACTOBACILLUS RHAMNOSUS GG 1 EACH CAP PO SCH (08:29)
[2016-12-29] MEDS: PANTOPRAZOLE 40 MG TABEC PO SCH (08:29)
[2016-12-29] MEDS: FERROUS SULFATE 325 MG TABEC PO SCH (08:29)
[2016-12-29] MEDS: ASPIRIN 81 MG TAB.CHEW PO SCH (08:29)
[2016-12-29] MEDS: OXYBUTYNIN 5 MG TAB PO SCH ×2 (08:30→12:16)
--- NOTE | 2016-12-29 09:29 | NUR ---
CM NOTE CONCURRENT REVIEW AND ORDER FOR SNF SENT TO [facility] FAX# [phone] TESSY MARLI PH# [phone]. SENT INQUIRIES TO [facility] AND ELOISA ULLOA. Addendum: 12/29/16 at 1006 by Desi Gentile CM INQUIRY ALSO SENT TO [facility]
[2016-12-29] MEDS: HYDROmorphone 1 MG/ML AMP IVP PRN (11:25)
[2016-12-29 12:00] VITALS: BP 130/93
--- NOTE | 2016-12-29 12:16 | NUR ---
PT RESTING IN BED. NO S/S OF ACUTE DISTRESS. PT DENIES PAIN AT THIS TIME. CALL LIGHT WITHIN REACH. WILL CONTINUE TO MONITOR.
[2016-12-29 12:49] VITALS: BP 130/93
--- NOTE | 2016-12-29 13:23 | NUR ---
CM NOTE PER COORDINATOR YUAN FOR CM TESSY CALLES OF [place] PH# [phone] [phone] AUTH# [id number] [facility] AUTH# [id number] FOR SECURE TRANSPORTATION. PER LEONOR OF [facility] PH# [phone] THEY CAN ACCEPT THE PATIENT. SPOKE WITH OMAR OF SECURE TRANSPORTATION TO SET UP PATIENT TRANSPORT PH# [phone] CONFIRMATION# [id number]. SEED TECHNICIAN [facility] ACCEPTING DR. Taina QUIÑONES, NUMBER TO CALL FOR REPORT PH# [phone]. CHARGE NURSE MARLYS AND NURSE NATHANIEL AWARE.
[2016-12-29] MEDS ORDERED: LEVO0.083 PO (13:26)
[2016-12-29] MEDS ORDERED: WARF2TAB1 PO (13:34)
[2016-12-29] MEDS ORDERED: ATOR20TA40 PO (13:34)
[2016-12-29] MEDS ORDERED: DIVA500T1 PO (13:35)
[2016-12-29] MEDS ORDERED: ASPI81CT27 PO (13:37)
--- NOTE | 2016-12-29 13:49 | NUR ---
PT NOTES CHART REVIEWED AND CLEARED FOR PT BY RN. PATIENT IN SEMIFOWLER POSITION RESTING WITH CAREGIVER AT BEDSIDE. PATIENT STATING, "I'LL BE LEAVING LATER TODAY, I CAN'T DO ANYTHING BECAUSE OF MY BOOT, DOCTOR SAYS I CAN'T PUT WEIGHT ON IT". PATIENT EDUCATED ON BENEFITS OF THERAPY AND POSSIBLE PARTICIPATION OF BED EXERCISES. PATIENT POLITELY DECLINED, BUT AGREED TO REVIEW HEP AND DEMONSTRATED FEW UE, CORE AND LE EXERCISES. TRAY AND CALL LIGHT IN REACH. PATIENT AND CAREGIVER COOPERATIVE AND APPRECIATIVE OF PT CARE, RN MADE AWARE. NO OTHER NEEDS EXPRESSED AT THIS TIME WHEN ASKED. PVEx1 Addendum: 12/29/16 at 1511 by Karen Mayer PT PHYSICAL THERAPY CO-SIGN The Physical Therapy Progress Notes documented by Ethanol Quality Leader have been reviewed. Reviewed/Co-Signed by: Karen Mayer PT Documentation Done by: CHINEDU MCQUEEN BUSINESS TAXES SPECIALIST
--- NOTE | 2016-12-29 14:18 | NUR ---
PT RESTING IN BED. NO S/S OF ACUTE DISTRESS. PT DENIES PAIN. CALL LIGHT WITHIN REACH. SAFETY MEASURES ENSURED. WILL CONTINUE TO MONITOR.
--- NOTE | 2016-12-29 14:59 | NUR ---
PT CLEARED FOR TRANSFER TO SNF. DAUGHTER GERA AWARE OF TRANSFER. DISCHARGE INSTRUCTIONS PROVIDED. PT VERBALIZED UNDERSTANDING. NO S/S OF ACUTE DISTRESS. PT DENIES PAIN. AWAITING TRANSPORTATION.
--- NOTE | 2016-12-29 15:50 | NUR ---
TRANSPORTATION HERE. IV'S TAKEN OUT TIPS INTACT. NO S/S OF ACUTE DISTRESS. PT DENIES PAIN.
[2016-12-29] MEDS ORDERED: WARFARIN 5 MG TAB PO SCH (17:00)
== END 2016-12-29 15:50 | DRG 48 ==
LOC: MED 09:03 → MTU 10:47
PROVIDERS: ADMIT Family Medicine; ATTEND Family Medicine
PROC: 0HQ1XZZ Repair Face Skin, External Approach (ICD-10-PCS; principal; 2016-12-26)
DX: G90.9 Disorder of the autonomic nervous system, unspecified (principal); E43 Unspecified severe protein-calorie malnutrition; I50.43 Acute on chronic combined systolic (congestive) and diastolic (congestive) heart failure; D69.6 Thrombocytopenia, unspecified; E11.51 Type 2 diabetes mellitus with diabetic peripheral angiopathy without gangrene; S09.90XA Unspecified injury of head, initial encounter; I82.432 Acute embolism and thrombosis of left popliteal vein; N39.0 Urinary tract infection, site not specified; E83.42 Hypomagnesemia; S01.81XA Laceration without foreign body of other part of head, initial encounter; E78.5 Hyperlipidemia, unspecified; E03.9 Hypothyroidism, unspecified; M19.90 Unspecified osteoarthritis, unspecified site; G40.909 Epilepsy, unspecified, not intractable, without status epilepticus; F31.9 Bipolar disorder, unspecified; I11.0 Hypertensive heart disease with heart failure; J45.909 Unspecified asthma, uncomplicated; E66.9 Obesity, unspecified; I25.10 Atherosclerotic heart disease of native coronary artery without angina pectoris; G54.6 Phantom limb syndrome with pain; D64.9 Anemia, unspecified; W01.0XXA Fall on same level from slipping, tripping and stumbling without subsequent striking against object, initial encounter; Z60.2 Problems related to living alone; R29.6 Repeated falls; Z89.512 Acquired absence of left leg below knee; Z88.6 Allergy status to analgesic agent; Z88.0 Allergy status to penicillin; Z88.8 Allergy status to other drugs, medicaments and biological substances; Z79.899 Other long term (current) drug therapy; Z68.38 Body mass index [BMI] 38.0-38.9, adult; Y93.89 Activity, other specified; Y92.009 Unspecified place in unspecified non-institutional (private) residence as the place of occurrence of the external cause; Y99.8 Other external cause status; S82.301D Unspecified fracture of lower end of right tibia, subsequent encounter for closed fracture with routine healing; S82.831D Other fracture of upper and lower end of right fibula, subsequent encounter for closed fracture with routine healing
CPT/HCPCS: 12013; 36415; 70450; 70486; 71010; 73610; 80048; 80053; 80305; 81001; 82040; 82140; 82150; 82553; 82607; 82746; 83036; 83540; 83605; 83690; 83735; 83880; 84100; 84439; 84443; 84484; 85025; 85045; 85610; 85730; 87040; 87081; 87086; 87186; 93005; 93880; 93925; 93970; 97110; 97116; 97530; 99285; J0696; J1170; J1644; J2001; J7030; J7060; Q0092

== ENCOUNTER 2017-05-10 20:10 | Inpatient (IN) | payer OTHER ==
[~2017-05-10] VITALS: Ht 165.1 cm; Wt 50.8 kg
[~2017-05-10 20:10] MED LIST changes: -ACET-3820 PO; -ALBU0.0912 IH; -ASPI81CT89 PO; +ASPI81CT95 PO; +ATOR20TA40 PO; -BECL0.089 IH; -CALC-1380 PO; +CALC-53 PO; +DOCU-299 PO; -DOCU-67 PO; -ELA25 PO; -IBUP-974 PO; -ISOS5TAB7 PO; -LORA10TA19 PO; -METO25TA PO; -NITR0.4T2 SL; +OMEP20TA56 PO; -OMEP20TC5 PO; -OMEP40EC1 PO; -SIMV20TA1 PO; -TEMA30CA23 PO; +WARF2TAB1 PO; -[UNRECOGNIZED DRUG - CODE] PO
[2017-05-10 20:14] VITALS: BP 109/67
--- NOTE | 2017-05-10 20:19 | NUR ---
Dr. Winston evaluating patient
--- NOTE | 2017-05-10 20:38 | NUR ---
PT MICHELA BLS. TAKEN TO BED 3
[2017-05-10] MEDS ORDERED: KETOROLAC 30 MG/ML VIAL IVP ONE (20:40)
[2017-05-10] MEDS ORDERED: NACL 0.9% 1,000 ML IV ONE (20:40)
--- NOTE | 2017-05-10 21:00 | NUR ---
51 Y/F BIBA TO ED W/C/O NECK/BACK PAIN S/P FALL X 3 HRS AGO. PT DENIES ANY LOC. MED HX LEFT BKA, AND OSTEOMYLITIS. MEDS LIPITOR, DONEPEZIL, AND SEROQUIL. PT DOESNT RECALL DOSAGES. AAO X4, WITH EPISODE OF FORGETFULLNESS. GCS 15. BOTH PUPILS PERRA, 2 MM. LT. BKA, UNABLE TO AMBULATE AT THIS TIME. RESPIRATIONS ROOM AIR, EVEN AND UNLABORED. EPISODE OF INCONTINENT OF BLADDER. C/O PAIN 02/06. VSS, ER MD MADE AWARE OF PT. STATUS.
[2017-05-10 21:06] LABS: HEMATOCRIT 29.1 % (36-48); HEMOGLOBIN 9.5 g/dL (12.0-16.0); MEAN CORPUSCULAR HEMOGLOBIN 32 pg (27-31); MEAN CORPUSCULAR HGB CONC 33 g/dL (33-37); MEAN CORPUSCULAR VOLUME 99 fL (80-94); PLATELET COUNT (AUTO) 196 K/uL (140-450); RED BLOOD CELL COUNT(AUTO) 2.94 MIL/uL (4.20-5.40); RED CELL DISTRIBUTION WIDTH 15.2 % (11.6-13.7); WHITE BLOOD COUNT (AUTO) 9.6 K/uL (4.8-10.8)
--- NOTE | 2017-05-10 21:13 | NUR ---
PT TAKEN TO RADIOLOGY
[2017-05-10 21:19] LABS: PROTHROMBIN TIME 10.8 secs (10.8-13.4)
[2017-05-10 21:23] LABS: ANION GAP 7.8 (8-16); CREATININE 1.3 mg/dL (0.6-1.3); TOTAL BILIRUBIN 0.7 mg/dL (0.0-1.0)
[2017-05-10 21:26] LABS: LYMPHOCYTES % (MANUAL) 29 % (20-46); MONOCYTES % (MANUAL) 8 % (5-12)
[2017-05-10 21:27] LABS: POTASSIUM 2.8 mmol/L (3.5-5.1)
[2017-05-10 21:33] LABS: APPEARANCE,URINE CLOUDY (CLEAR); BILIRUBIN,URINE NEGATIVE (NEGATIVE); BLOOD, URINE 1+ (NEGATIVE); COLOR,URINE YELLOW (YELLOW); LEUKOCYTE ESTERASE ,URINE TRACE (NEGATIVE); NITRITE, URINE POSITIVE (NEGATIVE); UGLUCOSE NEGATIVE (NEGATIVE)
[2017-05-10 21:39] LABS: RBC,URINE 0-5 (RARE) /HPF (0-5); WBC,URINE 16-25 (MOD) /HPF (0-5)
[2017-05-10 21:40] LABS: BARBITURATE, URINE POS. ng/ml (NEG <=200); BENZODIAZEPINE, URINE NEG. ng/mL (NEG <=200); CANNABINOID, URINE NEG. ng/mL (NEG <=50); COCAINE, URINE NEG. ng/mL (NEG <=300); OPIATE, URINE NEG. ng/mL (NEG <=2000); PHENCYCLIDINE SCREEN,URINE NEG. ng/mL (NEG <=25)
[2017-05-10] MEDS ORDERED: MAGNESIUM OXIDE 400 MG TAB PO ONE (21:50)
[2017-05-10] MEDS ORDERED: POTASSIUM CHLORIDE 10 MEQ TABER PO ONE ×2 (21:50→22:30)
[2017-05-10] MEDS ORDERED: MAGNESIUM OXIDE 400 MG TAB ONE (22:13)
--- NOTE | 2017-05-10 22:18 | NUR ---
PT. EATING SANDWICHES AT BEDSIDE, NO S/SX OF DISTRESS AT THIS TIME.
[2017-05-10] MEDS ORDERED: LEVOFLOXACIN 500 MG/D5W PREMIX 100 ML IV ONE (22:20)
[2017-05-10] MEDS ORDERED: DOCUSATE SODIUM 100 MG GELCAP PO PRN (22:30)
[2017-05-10] MEDS ORDERED: HYDROcodone/APAP 7.5/325 MG 1 TAB PO PRN (22:30)
[2017-05-10] MEDS ORDERED: ACETAMINOPHEN 325 MG TAB PO PRN (22:30)
[2017-05-10] MEDS ORDERED: ONDANSETRON 4 MG/2 ML VIAL IM/IVP PRN (22:30)
--- NOTE | 2017-05-10 22:31 | NUR ---
ER MD DR CASTRO STS TO LAYOUT INSPECTOR PIN " NO BLOOD CULTURES NEEDED AT THIS TIME"
[2017-05-10] MEDS ORDERED: GABAPENTIN PO PRN (22:35)
[2017-05-10] MEDS ORDERED: METHOCARBAMOL PO PRN (22:35)
[2017-05-10] MEDS ORDERED: clonazePAM 0.5 MG TAB PO PRN (22:35)
[2017-05-10] MEDS ORDERED: DOXEPIN HCL 100 MG PO PRN (22:35)
[2017-05-10] MEDS ORDERED: QUEtiapine FUMARATE 100 MG TAB PO PRN (22:35)
[2017-05-10] MEDS ORDERED: NORTRIPTYLINE 25 MG CAP PO PRN (22:35)
--- NOTE | 2017-05-10 22:38 | NUR ---
OJ, APPLE, CRANBERRY JUCIE, CRACKERS AND APPLESAUCE GIVEN.
[2017-05-10] MEDS ORDERED: NITROGLYCERIN 0.4 MG TAB SL PRN (22:50)
[2017-05-10] MEDS ORDERED: KCL 20 MEQ/WATER INJ PREMIX 200 ML IV SCH (22:50)
--- NOTE | 2017-05-10 22:50 | NUR ---
Patient will be admitted to care of DR. MONTALVO. Admited to TELE. Will go to [id number]. Belongings list completed. Report to JOSE LUIS WATERS.
[2017-05-10] MEDS ORDERED: MECLIZINE 25 MG TAB PO PRN (22:55)
--- NOTE | 2017-05-10 23:17 | NUR ---
RECEIVED FROM ER PER BABS AWAKE AND ALERT. NO SOB. DENIES PAIN AT THIS TIME. CALL LIGHT USE EXPLAINED TO HER AND RAPID RESPONSE EXPLAINED. NOTED WITH FORGETFULNESS. PT. WITH LEFT BKA. PT. ON TELEMETRY MONITORING. DX. OF HYPOKALEMIA AND CHEST PAIN. ORIENTED TO ROOM AND CARE GIVERS. PT. ENCOURAGED TO CALL FOR ANY HELP SHE MAY NEED.
[2017-05-10] MEDS: NACL 0.9% 1,000 ML IV SCH (23:29)
[2017-05-10 23:31] VITALS: BP 95/61
[2017-05-10] MEDS: PANTOPRAZOLE 40 MG TABEC PO SCH (23:38)
--- NOTE | 2017-05-10 23:44 | NUR ---
POTASSIUM CHL 20 MEQ/WATER INJ PREMIX 200 ML AND NS AT 60 ML/H INFUSING AT THIS TIME ORDERED. PT. AWAKE AND ALERT WITH FORGETFULNESS.
[2017-05-11] VITALS (15 sets, daily range): BP systolic 85–113; BP diastolic 55–77
[2017-05-11 00:22] LABS: CHOL/HDL RATIO 12.3 (1-4.5); FREE T4 (FREE THYROXINE) 0.93 ng/dL (0.76-1.46); MAGNESIUM 2.2 mg/dL (1.8-2.4); PHOSPHORUS 3.4 mg/dL (2.5-4.9); THYROID STIMULATING HORMONE 6.6 uIU/mL (0.34-3.74)
[2017-05-11] MEDS ORDERED: INFLUENZA VIRUS VACCINE QUAD 0.5 ML SYR IMVAC SCH (01:30)
[2017-05-11] MEDS ORDERED: PNEUMOCOCCAL VACCINE 23 MCG/0.5 ML VIAL IMVAC SCH (01:30)
--- NOTE | 2017-05-11 02:36 | NUR ---
SEQUENTIALS TO RIGHT LEG IN PLACE. WITH LEFT BKA. PADDED SIDE RAILS SEIZURE SAFETY PRECAUTIONS.TELEMETRY MONITORING.
--- NOTE | 2017-05-11 04:08 | NUR ---
SLEEPING. NO RESTLESSNESS NOTED.
[2017-05-11 06:12] LABS: BASOPHILS # (AUTO) 0.1 K/uL (0.00-0.22); EOSINOPHILS # (AUTO) 0.1 K/uL (0-0.4); EOSINOPHILS % (AUTO) 0.7 % (0.0-4.0); HEMATOCRIT 25.6 % (36-48); HEMOGLOBIN 8.5 g/dL (12.0-16.0); LYMPHOCYTES # (AUTO) 1.7 K/uL (2.5-16.5); LYMPHOCYTES % (AUTO) 20.6 % (20.5-51.1); MEAN CORPUSCULAR HEMOGLOBIN 33 pg (27-31); MEAN CORPUSCULAR HGB CONC 33 g/dL (33-37); MEAN CORPUSCULAR VOLUME 99 fL (80-94); MONOCYTES # (AUTO) 1.2 K/uL (0.8-1.0); NEUTROPHILS # (AUTO) 5.4 K/uL (1.8-7.7); NEUTROPHILS % (AUTO) 63.7 % (42.2-75.2); PLATELET COUNT (AUTO) 178 K/uL (140-450); RED BLOOD CELL COUNT(AUTO) 2.58 MIL/uL (4.20-5.40); RED CELL DISTRIBUTION WIDTH 15.8 % (11.6-13.7); WHITE BLOOD COUNT (AUTO) 8.5 K/uL (4.8-10.8)
[2017-05-11 06:45] LABS: ANION GAP 10.6 (8-16); CARBON DIOXIDE 27.9 mmol/L (21-32); CREATININE 1.3 mg/dL (0.6-1.3); POTASSIUM 3.5 mmol/L (3.5-5.1)
--- NOTE | 2017-05-11 07:20 | NUR ---
RECEIVED REPORT FROM BORING AND FILLING MACHINE OPERATOR RN. PATIENT IS LAYING IN BED, AAOX3. LUNG SOUNDS ARE CLEAR, BOWEL SOUNDS ARE ACTIVE, NO SIGNS AND SYMPTOMS OF RESPIRATORY DISTRESS NOTED AT THIS TIME. HAS NORMAL SALINE INFUSING INTO LEFT HAND, 22G, 100 ML/HR. CLEAN DRY AND PATENT. SAFETY MEASURES IN PLACE, PADDED SIDERAILS, SIDERAILS UP X2, BED IN LOWEST POSITION, BED ALARM ON, CALL LIGHT PLACED WITHIN REACH. INSTRUCTED PATIENT POLICY WRITER SALES LIGHT, AND PATIENT VERBALIZED UNDERSTANDING. WILL CONTINUE TO MONITOR.
[2017-05-11] MEDS ORDERED: DOXEPIN 25 MG CAP PO PRN (07:30)
[2017-05-11] MEDS: METOPROLOL SUCCINATE 50 MG TABER PO SCH (09:00)
[2017-05-11] MEDS: LISINOPRIL 20 MG TAB PO SCH (09:00)
[2017-05-11] MEDS ORDERED: ASPIRIN 81 MG TAB.CHEW PO SCH (09:00)
[2017-05-11] MEDS: LACTOBACILLUS RHAMNOSUS GG 1 EACH CAP PO SCH (09:21)
--- NOTE | 2017-05-11 09:21 | NUR ---
HELD METOPROLOL DUE TO HEART RATE BELOW 60, HR 56. HELD LISINOPRIL DUE TO LOW BP. NO SIGNS AND SYMPTOMS OF DISTRESS NOTED AT THIS TIME.
[2017-05-11] MEDS: HYDROmorphone 2 MG TAB PO PRN (09:33)
--- NOTE | 2017-05-11 09:54 | NUR ---
PATIENT HAS BEEN SCREENED AND CATEGORIZED HIGH NUTRITION RISK. PATIENT WILL BE SEEN WITHIN 1-2 DAYS OF ADMISSION. 05/11/17-05/12/[address]
[2017-05-11] MEDS ORDERED: METHOCARBAMOL 500 MG TAB PO PRN (11:20)
[2017-05-11] MEDS ORDERED: DONE10TA10 PO (11:26)
[2017-05-11] MEDS ORDERED: LEVE750T3 PO (11:26)
[2017-05-11] MEDS ORDERED: PRIM50TA23 PO (11:26)
--- NOTE | 2017-05-11 11:34 | NUR ---
PATIENT IS SITTING UP IN BED, DAUGHTER AT BEDSIDE. BED ALARM ON, WILL CONTINUE TO MONITOR.
[2017-05-11] MEDS: GABAPENTIN 100 MG CAP PO SCH ×2 (12:35→21:38)
--- NOTE | 2017-05-11 13:00 | NUR ---
PATIENT ATE ABOUT 20% OF HER LUNCH. STATED THERE WASN'T MUCH THAT SHE LIKED.
--- NOTE | 2017-05-11 13:07 | NUR ---
CM NOTE INITIAL REVIEW FAXED TO [facility] / FAX# [phone], ATTN: ROXANN [phone] [id number]
--- NOTE | 2017-05-11 14:48 | NUR ---
05/11/17 RD INITIAL ASSESSMENT COMPLETE 1. CONTINUE CARDIAC DIET 2. ADD DIET HEALTH SHAKE TID 3. ADD VITAMIN B12 + FOLATE SUPPLEMENT 4. PROVIDE NUTRITION THERAPY EDUCATION NEEDED 5. RD TO FOLLOW-UP 2-3 DAYS, HIGH RISK SUREKHA ELLIOTT RD
[2017-05-11] MEDS ORDERED: METHOCARBAMOL 500 MG TAB PO SCH (15:30)
[2017-05-11] MEDS: NACL 0.9% 1,000 ML IV SCH ×2 (15:31→19:35)
[2017-05-11] MEDS: NEOMYCIN/POLYMYXIN/BACITRACIN OIN 15 GM TUBE TP SCH (16:00)
[2017-05-11] MEDS ORDERED: WARFARIN 2 MG TAB PO SCH ×2 (17:00)
[2017-05-11] MEDS: CYANOCOBALAMIN 100 MCG TAB PO SCH (17:09)
--- NOTE | 2017-05-11 17:39 | NUR ---
PATIENT ACCIDENTALLY PULLED OUT IV FROM LEFT HAND. NO SIGNS AND SYMPTOMS OF DISTRESS NOTED AT THIS TIME.
--- NOTE | 2017-05-11 17:45 | NUR ---
INSERTED NEW IV ON LEFT INNER WRIST WITH 22G. NORMAL SALINE IS INFUSING AT 100 ML/HR, IV SITE IS CLEAN, DRY, INTACT AND PATENT.
--- NOTE | 2017-05-11 19:28 | NUR ---
ENDORSED PATIENT TO CLIN TECH RN FOR CONTINUITY OF CARE. PATIENT IN STABLE CONDITION.
--- NOTE | 2017-05-11 19:30 | NUR ---
RECEIVED REPORT FROM DAY SHIFT RN AT PT BEDSIDE FOR CONTINUITY OF CARE. PATIENT IS AAOX3, ON ROOM AIR. NO SIGNS AND SYMPTOMS OF RESPIRATORY DISTRESS NOTED AT THIS TIME, LUNGS ARE CLEAR. HAS 22 GAUGE IV, ASYMPTOMATIC, TO LEFT WRIST INFUSING NS@100ML/HR. PT HAS SCAB ON RIGHT EAR, OPEN WOUND ON LEFT EAR, AND A BELOW THE KNEE AMPUTATION ON HER LEFT. SAFETY MEASURES IN PLACE, SEIZURE PRECAUTIONS IN PLACE. DISCUSSED PLAN OF CARE WITH PT, PT VERBALIZED UNDERSTANDING. BED IN LOW POSITION, CALL LIGHT WITHIN REACH. WILL CONTINUE TO MONITOR.
[2017-05-11] MEDS ORDERED: LEVOTHYROXINE 0.088 MG TAB PO SCH (21:00)
[2017-05-11] MEDS: levETIRAcetam 100 MG/ML ORASYR PO SCH (21:37)
[2017-05-11] MEDS: CALCIUM CARB/VIT-D 500 MG/200 IU 1 TAB PO SCH (21:39)
[2017-05-11] MEDS: PRIMIDONE 50 MG TAB PO SCH (21:40)
[2017-05-11] MEDS: PANTOPRAZOLE 40 MG TABEC PO SCH (21:41)
[2017-05-11] MEDS: DIVALPROEX 500 MG TABER PO SCH (21:42)
[2017-05-11] MEDS: ATORVASTATIN 20 MG TAB PO SCH (21:42)
[2017-05-11] MEDS: OXYBUTYNIN 5 MG TAB PO SCH (21:44)
[2017-05-11] MEDS: METHOCARBAMOL 500 MG TAB PO SCH (21:44)
--- NOTE | 2017-05-11 21:45 | NUR ---
ADMINISTERED SCHEDULED MEDICATIONS, PT TOLERATED WELL. PT IN STABLE CONDITION WITH NO SIGNS OF DISTRESS. BED IN LOW POSITION, CALL LIGHT WITHIN REACH. WILL CONTINUE TO MONITOR.
--- NOTE | 2017-05-11 22:15 | NUR ---
PT ASKED TO KEEP DOOR CLOSED.
[2017-05-12] VITALS (10 sets, daily range): BP systolic 86–119; BP diastolic 50–79
--- NOTE | 2017-05-12 00:15 | NUR ---
PT IN STABLE CONDITION, ORTHOSTATIC BLOOD PRESSURE TAKEN. NO SIGNS OF WITHDRAWL NOTICED. BED IN LOW POSITION, CALL LIGHT WITHIN REACH. WILL CONTINUE TO MONITOR.
--- NOTE | 2017-05-12 04:30 | NUR ---
CHANGED PT AND BED CHUCKS. PT ABLE TO ASSIST. PT IN STABLE CONDITION, ORTHOSTATIC BLOOD PRESSURE TAKEN. NO SIGNS OF WITHDRAWL NOTICED. BED IN LOW POSITION, CALL LIGHT WITHIN REACH. WILL CONTINUE TO MONITOR.
[2017-05-12] MEDS: NACL 0.9% 1,000 ML IV SCH (05:38)
[2017-05-12] MEDS: LEVOTHYROXINE 0.088 MG TAB PO SCH (05:57)
[2017-05-12] MEDS: GABAPENTIN 100 MG CAP PO SCH ×3 (05:57→21:27)
--- NOTE | 2017-05-12 06:00 | NUR ---
ADMINISTERED SCHEDULED MEDICATIONS, PT TOLERATED WELL. PT IN STABLE CONDITION, ORTHOSTATIC BLOOD PRESSURE TAKEN. NO SIGNS OF WITHDRAWL NOTICED. BED IN LOW POSITION, CALL LIGHT WITHIN REACH. WILL CONTINUE TO MONITOR.
[2017-05-12 07:17] LABS: T4 (THYROXINE) 5.6 ug/dL (4.5-12.0)
--- NOTE | 2017-05-12 07:19 | NUR ---
RECEIVED REPORT FROM RECYCLING TECHNICIAN RN. PATIENT IS LAYING IN BED SLEEPING. LUNG SOUNDS ARE CLEAR, BOWEL SOUNDS ARE ACTIVE, NO SIGNS AND SYMPTOMS OF RESPIRATORY DISTRESS NOTED AT THIS TIME. HAS NORMAL SALINE INFUSING INTO LEFT WRIST, 22G, 100 ML/HR. CLEAN DRY AND PATENT. SAFETY MEASURES IN PLACE, PADDED SIDERAILS, SIDERAILS UP X2, BED IN LOWEST POSITION, BED ALARM ON, CALL LIGHT PLACED WITHIN REACH. WILL CONTINUE TO MONITOR.
[2017-05-12 07:21] LABS: ANION GAP 6.4 (8-16); CARBON DIOXIDE 30.6 mmol/L (21-32); CREATININE 1.1 mg/dL (0.6-1.3)
--- NOTE | 2017-05-12 07:32 | NUR ---
ENDORSED PT TO DAY SHIFT NURSE FOR CONTINUITY OF CARE. PT IN STABLE CONDITION.
[2017-05-12 07:49] LABS: PROTHROMBIN TIME 10.6 secs (10.8-13.4)
[2017-05-12 07:56] LABS: HEMATOCRIT 30.3 % (36-48); HEMOGLOBIN 10.1 g/dL (12.0-16.0); MEAN CORPUSCULAR HEMOGLOBIN 33 pg (27-31); MEAN CORPUSCULAR HGB CONC 33 g/dL (33-37); MEAN CORPUSCULAR VOLUME 99 fL (80-94); PLATELET COUNT (AUTO) 205 K/uL (140-450); RED BLOOD CELL COUNT(AUTO) 3.07 MIL/uL (4.20-5.40); RED CELL DISTRIBUTION WIDTH 15.8 % (11.6-13.7)
[2017-05-12 07:59] LABS: EOSINOPHILS % (MANUAL) 2 % (0-4); LYMPHOCYTES % (MANUAL) 29 % (20-46); MONOCYTES % (MANUAL) 11 % (5-12); WHITE BLOOD COUNT (AUTO) 13.8 K/uL (4.8-10.8)
[2017-05-12] MEDS: CYANOCOBALAMIN 100 MCG TAB PO SCH ×3 (08:00→16:56)
--- NOTE | 2017-05-12 08:53 | NUR ---
FAXED CONCURRENT REVIEW TO [facility] [phone] PHONE [phone] [id number] ROXANN
[2017-05-12] MEDS ORDERED: CYANOCOBALAMIN 100 MCG TAB PO SCH (09:00)
[2017-05-12] MEDS: LACTOBACILLUS RHAMNOSUS GG 1 EACH CAP PO SCH (09:06)
[2017-05-12] MEDS: METHOCARBAMOL 500 MG TAB PO SCH ×2 (09:07→21:26)
[2017-05-12] MEDS: METOPROLOL SUCCINATE 50 MG TABER PO SCH (09:08)
[2017-05-12] MEDS: LISINOPRIL 20 MG TAB PO SCH (09:08)
[2017-05-12] MEDS: FOLIC ACID 1 MG TAB PO SCH (09:09)
[2017-05-12] MEDS: DONEPEZIL 10 MG TAB PO SCH (09:09)
[2017-05-12] MEDS: levETIRAcetam 100 MG/ML ORASYR PO SCH ×2 (09:09→21:30)
[2017-05-12] MEDS: NEOMYCIN/POLYMYXIN/BACITRACIN OIN 15 GM TUBE TP SCH (09:15)
--- NOTE | 2017-05-12 09:50 | NUR ---
PATIENT SLEEPING, WILL CONTINUE TO MONITOR.
--- NOTE | 2017-05-12 10:08 | NUR ---
WOUND EVALUATION NOTE: REASON FOR WOUND EVALUATION:EAR WOUNDS COMPLETE SKIN ASSESSMENT DONE ON THIS 51 Y/O FEMALE PATIENT ADMITTED TO [facility], WITH INITIAL DIAGNOSIS OF RECURRENT FALL AND CHEST PAIN. PAST MEDICAL HISTORY INCLUDE CHRONIC BACK PAIN C3-C4, C7-T1 DISC BULGE. RIGHT BKA ALL ABOVE INFORMATION WAS OBTAINED FROM PT AND THE ADMISSION H&P. LABS ARE WBC 13.8, H/H 10.1/30.3, GLUCOSE 89, ALBUMIN 2.0. CURRENT MEDS INCLUDE LISINOPRIL, LEVOFLOXACIN, WARFARIN, LEVOTHYROXINE AND OXYBUTYNIN. PATIENT IS AWAKE, ORIENTED TO PERSON, PLACE AND TIME. SKIN WARM TO TOUCH WNL, TOENAILS ARE SLIGHTLY THICKENED, NO EDEMA, LLE NO HAIR GROWTH AND NORMAL PEDAL PULSES. PLAN OF CARE AND PRESSURE PREVENTIVE MEASURES DISCUSSED WITH PT. AND PRIMARY RN. PT. ABLE TO VERBALIZE UNDERSTANDING. INTEGUMENTARY: RIGHT BKA AMPUTATION OLD HEALED SCAR LEFT EAR PRESSURE ULCER STAGE II 0.8X0.2CM WOUND BED WITH WHITE SOFT TISSUE, PW REDNESS 2X1 CM, WARM WITH SLIGHTLY ERYTHEMA RIGHT EAR DTI 100% MAROON, SKIN INTACT LEFT LOWER LEG DRY SKIN UE MULTIPLE ECCHYMOSIS RECOMMENDATIONS: -CLEANSE LEFT EAR PRESSURE ULCER STAGE II WITH NS. PAT DRY, APPLY BACITRACIN QD AND JARRED -CLEANSE RIGHT EAR DTI WITH NS, PAT DRY, APPLY HYDRAGUARD BID WC AND LEAVE OPEN TO AIR -TURN AND REPOSITION PATIENT Q2H -OFFLOAD BILATERAL HEELS BY PLACING PILLOWS UNDER LEFT CALF AT ALL TIMES, UNLESS OTHERWISE CONTRAINDICATED-KEEP -KEEP SKIN CLEAN AND DRY AT ALL TIMES. -PT. WAS INSTRUCTED TO TURN/REPOSITION Q2H, AVOID LYING ON EARS, MAY USE NECK PILLOW TO SUPPORT -CONTINUE TO FOLLOW RD RECOMMENDATIONS RECOMMENDATIONS DISCUSSED WITH PRIMARY RN AND DR. LUU WILL FOLLOW UP PATIENT Q 7-10 DAYS AND PRN. PLEASE CONTACT WOUND CARE NURSE FOR ANY QUESTIONS AND CHANGES IN WOUND CONDITION. Addendum: 05/12/17 at 1037 by Damien Conteh RN (Grace) CORRECTION ON MEASUREMENTS LEFT EAR PRESSURE ULCER STAGE II 1.5X0.5CM, WOUND BED WITH WHITE SOFT TISSUE, PW REDNESS 2X1 CM, WARM WITH SLIGHTLY ERYTHEMA RIGHT EAR DTI 100% MAROON, 0.8X0.5 CM SKIN INTACT Addendum: 05/12/17 at 1052 by Damien Conteh RN (Grace) CORRECTION: LEFT BKA NOT RIGHT BKA
--- NOTE | 2017-05-12 11:55 | NUR ---
FAXED INQUIRY TO [facility] MALIA YEPEZ. [phone] PHONE [phone], [place]
--- NOTE | 2017-05-12 12:12 | NUR ---
HELPED PATIENT WITH CHANGING HER DEPENDS. NO SIGNS AND SYMPTOMS OF DISTRESS NOTED AT THIS TIME.
--- NOTE | 2017-05-12 13:32 | NUR ---
RECEIVED CALL FROM JESUSITA FROM [facility]. THEY CANNOT ACCEPT THE PATIENT DUE TO THE AGE. FAXED INQUIRY TO [facility].
--- NOTE | 2017-05-12 13:40 | NUR ---
DAUGHTER IS AT THE BEDSIDE. WILL CONTINUE TO MONITOR.
--- NOTE | 2017-05-12 14:09 | NUR ---
[id number] RECEIVED CALL FROM PARISH AT [facility] [phone]. STATED SHE HAD TALKED TO PT AND SHE WAS CONCERNED REGARDING TRANSPORTATION TO HOME. STATED THAT [facility] THROUGH THE TRANSITIONS OF CARE PROGRAM DO PROVIDE TRANSPORT TO HOME AND IF NEEDED TO CALL [facility] [phone] AND THAT NO AUTH SHOULD BE NEEDED ONLY THE PTS INSURANCE ID #.
--- NOTE | 2017-05-12 15:14 | NUR ---
SPOKE WITH PATIENT AND HER DAUGHTER,GERA. AT PRESENT THE PATIENT DOES NOT WANT TO GO TO A SNF. SHE WANTS TO GO HOME. SHE WANTED TO SPEAK WITH THE DOCTOR. I INFORM DR. RODRIGUEZ. I RECEIVED A CALL FROM SHAN FROM [facility]. THEY WILL ACCEPT THE PATIENT IF SHE AGREES TO GO TO A SNF.
--- NOTE | 2017-05-12 15:48 | NUR ---
SPOKE WITH ROXANN HAQ GRANT. WEEKEND COVERAGE, CALL [phone].
[2017-05-12] MEDS ORDERED: WARFARIN 5 MG TAB PO SCH (17:00)
--- NOTE | 2017-05-12 17:00 | NUR ---
PATIENT IS SLEEPING, SAFETY MEASURES IN PLACE. CALL LIGHT WITHIN REACH. WILL CONTINUE TO MONITOR.
--- NOTE | 2017-05-12 19:20 | NUR ---
ENDORSED PATIENT TO CHURCH ORGANIST RN FOR CONTINUITY OF CARE. PATIENT IN STABLE CONDITION.
--- NOTE | 2017-05-12 19:21 | NUR ---
RECEIVED REPORT FROM DAY SHIFT RN AT PT BEDSIDE FOR CONTINUITY OF CARE. PATIENT IS AAOX3, ON ROOM AIR. NO SIGNS AND SYMPTOMS OF RESPIRATORY DISTRESS NOTED AT THIS TIME, LUNGS ARE CLEAR. HAS 22 GAUGE IV, ASYMPTOMATIC, TO LEFT WRIST INFUSING NS@50ML/HR. PT HAS SCAB ON RIGHT EAR, OPEN WOUND ON LEFT EAR, AND A BELOW THE KNEE AMPUTATION ON HER LEFT. SAFETY MEASURES IN PLACE, SEIZURE PRECAUTIONS IN PLACE. DISCUSSED PLAN OF CARE WITH PT, PT VERBALIZED UNDERSTANDING. BED IN LOW POSITION, CALL LIGHT WITHIN REACH. WILL CONTINUE TO MONITOR.
[2017-05-12] MEDS: DIVALPROEX 500 MG TABER PO SCH (21:28)
[2017-05-12] MEDS: CALCIUM CARB/VIT-D 500 MG/200 IU 1 TAB PO SCH (21:28)
[2017-05-12] MEDS: PANTOPRAZOLE 40 MG TABEC PO SCH (21:29)
[2017-05-12] MEDS: PRIMIDONE 50 MG TAB PO SCH (21:29)
[2017-05-12] MEDS: ATORVASTATIN 20 MG TAB PO SCH (21:30)
[2017-05-12] MEDS: OXYBUTYNIN 5 MG TAB PO SCH (21:30)
--- NOTE | 2017-05-12 21:30 | NUR ---
ADMINISTERED SCHEDULED MEDICATIONS, PT TOLERATED WELL. PT STATES SHE CANNOT HAVE BOWEL MOVEMENT ON THE BEDPAN AND WANTS TO USE THE RESTROOM. ASKED PT IF BEDSIDE COMMODE WOULD HELP, AND PT SAID YES. TOLD PT I WOULD PUT ONE IN HER ROOM BUT SHE STILL NEEDED TO USE CALL LIGHT TO LET US KNOW WHEN SHE WANTS TO USE IT SO THAT WE CAN HELP HER, PT VERBALIZED UNDERSTANDING. PT ALSO WANTED TO KNOW IF DR COULD D/C HER IV FLUIDS BECAUSE SHE HAS TO VOID VERY OFTEN AND THAT IS SOMETHING SHE FINDS "ANNOYING." TOLD PT I WOULD CONSULT WITH THE RESIDENT ON UNIT. PT IN STABLE CONDITION, NO SIGNS OF DISTRESS NOTED. BED IN LOW POSITION, CALL LIGHT WITHIN REACH. WILL CONTINUE TO MONITOR.
[2017-05-12] MEDS: HYDRAGUARD CREAM TP SCH (21:31)
[2017-05-12] MEDS ORDERED: LEVOFLOXACIN 750 MG/D5W PREMIX 150 ML IV SCH (22:00)
--- NOTE | 2017-05-12 22:00 | NUR ---
SPOKE WITH DR ALEXANDER ABOUT PT WANTING IV FLUIDS TO BE D/C. ASKED TO EXPLAIN TO PT THAT FLUIDS ARE IMPORTANT BECAUSE OF UTI. EXPLAINED TO PT WHAT SAID. PT SAID SHE WAS "NOT HAPPY WITH THAT ANSWER" BUT THAT SHE "UNDERSTOOD AND ACCEPT IT."
--- NOTE | 2017-05-12 23:40 | NUR ---
PT EASILY AWAKENED BY NAME. PT IN STABLE CONDITION, NO S/S OF DISTRESS NOTED. BED IN LOW POSITION, CALL LIGHT WITHIN REACH. WILL CONTINUE TO MONITOR.
--- NOTE | 2017-05-12 23:40 | NUR ---
RECEIVED REPORT FROM DAY SHIFT RN AT PT BEDSIDE FOR CONTINUITY OF CARE. PATIENT IS AAOX3, ON ROOM AIR. NO SIGNS AND SYMPTOMS OF RESPIRATORY DISTRESS NOTED AT THIS TIME, LUNGS ARE CLEAR. HAS 22 GAUGE IV, ASYMPTOMATIC, TO LEFT WRIST INFUSING NS@50ML/HR. PT HAS SCAB ON RIGHT EAR, OPEN WOUND ON LEFT EAR, AND A BELOW THE KNEE AMPUTATION ON HER LEFT. SAFETY MEASURES IN PLACE, SEIZURE PRECAUTIONS IN PLACE. DISCUSSED PLAN OF CARE WITH PT, PT VERBALIZED UNDERSTANDING. BED IN LOW POSITION, CALL LIGHT WITHIN REACH. WILL CONTINUE TO MONITOR. Addendum: 05/12/17 at 2341 by Radha Gipson RN WRONG NOTE, PLEASE DISREGARD.
[2017-05-13 00:04] VITALS: BP 91/56
[2017-05-13] MEDS: NACL 0.9% 1,000 ML IV SCH (01:04)
[2017-05-13 04:00] VITALS: BP 118/71
[2017-05-13] MEDS: GABAPENTIN 100 MG CAP PO SCH ×2 (04:37→12:18)
[2017-05-13] MEDS: LEVOTHYROXINE 0.088 MG TAB PO SCH (05:54)
[2017-05-13 07:03] LABS: ANION GAP 8.3 (8-16); CARBON DIOXIDE 30.1 mmol/L (21-32); POTASSIUM 4.4 mmol/L (3.5-5.1)
--- NOTE | 2017-05-13 07:22 | NUR ---
ENDORSED PT TO DAY SHIFT NURSE FOR CONTINUITY OF CARE, PT IN STABLE CONDITION WITHOUT SIGNS OF DISTRESS.
--- NOTE | 2017-05-13 07:23 | NUR ---
RECEIVED REPORT FROM FOOD TRADES ASSISTANTS NURSE. PATIENT SITTING IN BED WITH BREAKFAST TRAY IN FRONT. IN STABLE CONDITION, NO DISTRESS NOTED. RESPIRATIONS EVEN, UNLABORED, ON ROOM AIR. COMPLAINS OF LOW BACK PAIN, WILL MEDICATE PER ORDERS. DENIES ANY CHEST PAIN. AAOX3, GENERALIZED WEAKNESS, BEDSIDE COMMODE AT BEDSIDE. LEFT AND RIGHT EAR OUTER LOBES HAS PRESSURE SORES NOTED. LEFT BKA NOTED, HAS RIGHT LE NON-PITTING EDEMA. SKIN IS WARM TO TOUCH, COLOR APPROPRIATE TO ETHNICITY. PLAN OF CARE REVIEWED WITH PATIENT. PATIENT VERBALIZED UNDERSTANDING. SAFETY MEASURES IN PLACE, CALL LIGHT WITHIN REACH, SEIZURE PRECAUTIONS IN PLACE, BED RAILS PADDED, BED RAILS UPX2, BED WHEELS LOCKED. WILL CONTINUE TO MONITOR.
[2017-05-13 07:26] LABS: HEMATOCRIT 23.4 % (36-48); HEMOGLOBIN 7.7 g/dL (12.0-16.0); MEAN CORPUSCULAR HEMOGLOBIN 33 pg (27-31); MEAN CORPUSCULAR HGB CONC 33 g/dL (33-37); MEAN CORPUSCULAR VOLUME 99 fL (80-94); PLATELET COUNT (AUTO) 200 K/uL (140-450); RED BLOOD CELL COUNT(AUTO) 2.37 MIL/uL (4.20-5.40); WHITE BLOOD COUNT (AUTO) 5.4 K/uL (4.8-10.8)
[2017-05-13 07:29] LABS: PROTHROMBIN TIME 21.2 secs (10.8-13.4)
[2017-05-13 07:46] LABS: EOSINOPHILS % (MANUAL) 3 % (0-4); LYMPHOCYTES % (MANUAL) 28 % (20-46); MONOCYTES % (MANUAL) 12 % (5-12)
[2017-05-13 08:00] VITALS: BP 115/72
--- NOTE | 2017-05-13 08:47 | NUR ---
PT INCONTINENT OF URINE, BED PADS CHANGED, PT ASSISTED WITH GOWN CHANGE, PT TRANSFERRED TO BEDSIDE COMMODE WITHOUT PROBLEM AT THIS TIME, CALL LIVE WITHIN REACH, WILL CONTINUE TO MONITOR.
[2017-05-13] MEDS: levETIRAcetam 100 MG/ML ORASYR PO SCH (08:55)
[2017-05-13] MEDS: CYANOCOBALAMIN 100 MCG TAB PO SCH ×3 (08:56→17:41)
[2017-05-13] MEDS: METHOCARBAMOL 500 MG TAB PO SCH (08:57)
[2017-05-13] MEDS: FOLIC ACID 1 MG TAB PO SCH (08:57)
[2017-05-13] MEDS: DONEPEZIL 10 MG TAB PO SCH (08:58)
[2017-05-13] MEDS: METOPROLOL SUCCINATE 50 MG TABER PO SCH (08:58)
[2017-05-13] MEDS: HYDRAGUARD CREAM TP SCH (08:59)
[2017-05-13] MEDS: LISINOPRIL 20 MG TAB PO SCH (08:59)
[2017-05-13] MEDS: NEOMYCIN/POLYMYXIN/BACITRACIN OIN 15 GM TUBE TP SCH (09:00)
[2017-05-13] MEDS: LACTOBACILLUS RHAMNOSUS GG 1 EACH CAP PO SCH (09:04)
--- NOTE | 2017-05-13 09:15 | NUR ---
PATIENT LYING IN BED WATCHING TV. NO DISTRESS NOTED. RESPIRATIONS EVEN, UNLABORED, ON ROOM AIR. IV PATENT AND INFUSING. DENIES CHEST PAIN. MEDICATIONS DUE GIVEN. COMPLAINTS OF LOW BACK PAIN, WILL MEDICATE PER ORDERS. COMPLAINTS OF FEELING COLD, WARM BLANKET GIVEN. WOUND CARE ON LEFT AND RIGHT EAR LOBES PERFORMED PER ORDERS. PATIENT TOLERATED WELL. SAFETY MEASURES IN PLACE, FALL PREVENTIONS IN PLACE, BED ALARM ON, CALL LIGHT WITHIN REACH. WILL CONTINUE TO MONITOR.
[2017-05-13] MEDS: HYDROmorphone 2 MG TAB PO PRN (09:22)
--- NOTE | 2017-05-13 09:53 | NUR ---
05/13/2017 RD FOLLOW UP COMPLETED PLEASE REFER TO NUTRITION PROGRESS NOTE UNDER CARE ACTIVITY FOR ESTIMATED NUTRITION NEEDS. RD RECOMMENDATIONS: 1. CONTINUE ON CARDIAC DIET WITH HEALTH SHAKES QD AT DINNER TOLERATED. 2. CONSIDER VIT B12 AND FOLIC ACID SUPPLEMENTS FOR LOW H/H. 3. CONSIDER MVI-MIN SUPPLMENT FOR SKIN INTEGRITY. 3. RD WILL F/U 3-5 DAYS; MODERATE RISK. BATSHEVA PALACIOS MS, RDN
--- NOTE | 2017-05-13 11:00 | NUR ---
PATIENT SITTING IN BED WATCHING TV. NO DISTRESS NOTED. LOW BACK PAIN WITHIN TOLERABLE. MEDICATIONS DUE GIVEN. RESPIRATIONS EVEN, UNLABORED, ON ROOM AIR. IV PATENT AND INFUSING. LEFT AND RIGHT EAR LOBE WOUNDS JARRED WITH NO S/S OF INFECTION NOTED. SAFETY MEASURES IN PLACE, CALL LIGHT WITHIN REACH, FALL PRECAUTIONS IN PLACE, BED ALARM ON. WILL CONTINUE TO MONITOR.
[2017-05-13 12:00] VITALS: BP 124/83
--- NOTE | 2017-05-13 13:40 | NUR ---
DR. COLUNGA AT BEDSIDE DISCUSSING DISCHARGE INSTRUCTIONS WITH PATIENT. PATIENT TO BE DISCHARGED TO HOME HEALTH FOR SAFETY EVALUATION. WILL CONTINUE TO MONITOR.
[2017-05-13] MEDS ORDERED: LEVO250T2 PO (13:46)
--- NOTE | 2017-05-13 14:06 | NUR ---
[facility] CALLED REGARDING HOME HEALTH NURSING SAFETY EVALUATION AND NUTRITIONAL COUNSELING, BUT THEY DO NOT TAKE PT'S INSURANCE, [facility], PER NORM. WILL TRY ANOTHER AGENCY, V.N.A.
--- NOTE | 2017-05-13 14:15 | NUR ---
CALLED [facility] [phone], BUT THEY ARE UNABLE TO VERIFY ELIGIBILITY UNTIL MONDAY MORNING. WILL CALL PT'S INSURANCE [facility].
--- NOTE | 2017-05-13 14:45 | NUR ---
[facility] [phone] DOES NOT HAVE NURSE AVAILABLE AT THIS TIME FOR HOME VISIT.
--- NOTE | 2017-05-13 14:58 | NUR ---
PATIENT ACCEPTED BY [facility] [phone], LEONA RODRIGUEZ, PT INFO FAXED, KESHA TO CONTACT PT ON MONDAY TO ARRANGE HOME VISIT FOR SAFETY EVALUATION AND NUTRITION COUNSELING. PT UPDATED WITH PLAN AND VERBALIZED UNDERSTANDING, WILL GIVE AGENCY INFO TO PT WITH DC INSTRUCTION.
--- NOTE | 2017-05-13 15:30 | NUR ---
PATIENT SITTING IN BED WATCHING TV. NO DISTRESS NOTED. RESPIRATIONS EVEN, UNLABORED, ON ROOM AIR. DENIES ANY PAIN OR DISCOMFORT AT THIS TIME. PATIENT TO BE DISCHARGED HOME WITH HOME HEALTH FOLLOW-UP ON MONDAY. EDUCATED/INSTRUCTED PATIENT ON DISCHARGE INSTRUCTIONS, ANSWERED ALL QUESTIONS FROM PATIENT. PATIENT VERBALIZED COMPLETE UNDERSTANDING. IV REMOVED WITH MINIMAL BLOOD AND LUMEN COMPLETELY INTACT. ID BANDS REMOVED. PATIENT AWAITING FOR FRIEND TO COME TAKE HER HOME VIA PRIVATE VEHICLE.
[2017-05-13 16:00] VITALS: BP 112/80
--- NOTE | 2017-05-13 16:18 | NUR ---
PHYSICAL THERAPY CO-SIGN The Physical Therapy Progress Notes documented by Dance Professor have been reviewed. Reviewed/Co-Signed by: Rocio Montemayor PT Documentation Done by:CHINEDU MCQUEEN CHOCOLATE MAKER Addendum: 05/13/17 at 1618 by Rocio Montemayor PT Amended: Links added.
[2017-05-13] MEDS ORDERED: WARFARIN 2.5 MG TAB PO SCH (17:00)
--- NOTE | 2017-05-13 18:15 | NUR ---
PATIENT'S FRIEND ARRIVED TO TAKE HER HOME. PATIENT WHEELED DOWN TO LOBBY VIA WHEELCHAIR. IN STABLE CONDITION UPON DISCHARGE. PATIENT DISCHARGED TO HOME WITH HOME HEALTH FOLLOW-UP.
--- NOTE | 2017-05-14 16:52 | NUR ---
Social Service Note: I spoke with noemi Burrell from [place] [phone], per Ashanti, I can contact [facility] , she stated she will put authorization for home health services in system. Per Kala from [facility], patient has been accepted and they will send a nurse to patient's home.
--- NOTE | 2017-05-15 16:20 | NUR ---
CM NOTE SPOKE W/ SALBADOR FROM [facility] ([phone]) AND PROVIDED AUTH# FOR HOME HEALTH: #[id number] SPOKE W/ YUAN FROM [facility] ([phone]) AND PROVIDED AUTH#.
--- NOTE | 2017-05-16 10:41 | NUR ---
FAXED DISCHARGE SUMMARY TO [facility] [phone]
== END 2017-05-13 18:20 | disposition home health service (06) | DRG 48 ==
LOC: MED 20:53 → OBSVTOIN 22:29 → UNDOADMOB 22:29 → INTOOBSV 22:29 → MTU 22:29 → OBSVTOIN 05-11 09:58 → MTU 05-11 09:58
PROVIDERS: ADMIT Family Medicine; ATTEND Family Medicine
DX: G90.9 Disorder of the autonomic nervous system, unspecified (principal); N17.0 Acute kidney failure with tubular necrosis; E43 Unspecified severe protein-calorie malnutrition; N39.0 Urinary tract infection, site not specified; I10 Essential (primary) hypertension; D64.9 Anemia, unspecified; E11.9 Type 2 diabetes mellitus without complications; M94.0 Chondrocostal junction syndrome [Tietze]; E87.6 Hypokalemia; F41.9 Anxiety disorder, unspecified; F31.9 Bipolar disorder, unspecified; G40.909 Epilepsy, unspecified, not intractable, without status epilepticus; J45.909 Unspecified asthma, uncomplicated; E03.9 Hypothyroidism, unspecified; G89.29 Other chronic pain; Z88.5 Allergy status to narcotic agent; Z88.0 Allergy status to penicillin; Z88.8 Allergy status to other drugs, medicaments and biological substances; Z79.82 Long term (current) use of aspirin; Z79.899 Other long term (current) drug therapy; Z89.512 Acquired absence of left leg below knee; Z86.718 Personal history of other venous thrombosis and embolism; Z79.01 Long term (current) use of anticoagulants
CPT/HCPCS: 36415; 70450; 71010; 71250; 72125; 72131; 76705; 80048; 80053; 80173; 80305; 81001; 82150; 83036; 83690; 83735; 83880; 84100; 84436; 84439; 84443; 84479; 84484; 85025; 85610; 85730; 87070; 87075; 87077; 87081; 87086; 87186; 87205; 90658; 93005; 93880; 93925; 93970; 96361; 96365; 96375; 97110; 97530; 99285; J1885; J1956; J3480; J7030; Q0092

== ENCOUNTER 2017-06-06 20:13 | Inpatient (IN) | payer OTHER ==
[~2017-06-06] VITALS: Ht 172.7 cm; Wt 76.7 kg
[~2017-06-06 20:13] MED LIST changes: +DONE10TA10 PO; +LEVE750T3 PO; +LEVO250T2 PO; +PRIM50TA23 PO
--- NOTE | 2017-06-06 20:13 | NUR ---
ERLINDA AVILES. TAKEN TO BED 1
[2017-06-06 20:14] VITALS: BP 110/78
--- NOTE | 2017-06-06 20:15 | NUR ---
Note barry in EDM - 06/06/17 at 2330 by GUNNER Patient noted to have existing wounds upon arrival to ER. Photos taken of wound and placed in chart. Wound covered with dressing. Physician informed.
--- NOTE | 2017-06-06 20:15 | NUR ---
Patient noted to have existing wounds TO BILATERAL EARS, AND BRUISES TO R LOWER LEG upon arrival to ER. Photos taken of wound and placed in chart. Wound covered with dressing. Physician informed.
--- NOTE | 2017-06-06 20:15 | NUR ---
51 Y/O F [facility]ED [facility]IV[facility] HOME W/C/O GEN WEAKNESS, DIZZINESS, FOR 2 DAYS, SWELLING AND BRUISES ON HER RT LEG. MED HX BKA, UTI's, seizures and osteomylitis. VSS, PT ON MONITOR, SNR, ER MD MADE AWARE.
[2017-06-06] MEDS ORDERED: NACL 0.9% 500 ML IV ONE ×2 (20:20)
--- NOTE | 2017-06-06 20:41 | NUR ---
X-Ray at bedside.
[2017-06-06 20:47] LABS: BASOPHILS # (AUTO) 0.3 K/uL (0.00-0.22); HEMATOCRIT 31.9 % (36-48); HEMOGLOBIN 10.4 g/dL (12.0-16.0); LYMPHOCYTES # (AUTO) 1.5 K/uL (2.5-16.5); MEAN CORPUSCULAR HEMOGLOBIN 34 pg (27-31); MEAN CORPUSCULAR HGB CONC 33 g/dL (33-37); MEAN CORPUSCULAR VOLUME 102 fL (80-94); MONOCYTES # (AUTO) 0.7 K/uL (0.8-1.0); NEUTROPHILS # (AUTO) 2.2 K/uL (1.8-7.7); PLATELET COUNT (AUTO) 157 K/uL (140-450); RED BLOOD CELL COUNT(AUTO) 3.11 MIL/uL (4.20-5.40); RED CELL DISTRIBUTION WIDTH 17.4 % (11.6-13.7); WHITE BLOOD COUNT (AUTO) 4.7 K/uL (4.8-10.8)
[2017-06-06 20:49] LABS: APPEARANCE,URINE SL CLOUDY (CLEAR); BILIRUBIN,URINE NEGATIVE (NEGATIVE); BLOOD, URINE NEGATIVE (NEGATIVE); COLOR,URINE YELLOW (YELLOW); LEUKOCYTE ESTERASE ,URINE TRACE (NEGATIVE); NITRITE, URINE POSITIVE (NEGATIVE); UGLUCOSE NEGATIVE (NEGATIVE)
[2017-06-06 20:58] LABS: ANION GAP 9.1 (8-16); CARBON DIOXIDE 31.1 mmol/L (21-32); CREATININE 1.3 mg/dL (0.6-1.3); POTASSIUM 4.2 mmol/L (3.5-5.1)
[2017-06-06 21:02] LABS: PROTHROMBIN TIME 10.8 secs (10.8-13.4)
[2017-06-06 21:04] LABS: ALBUMIN 2.9 g/dL (3.4-5.0); RBC,URINE 0-5 (RARE) /HPF (0-5); TOTAL BILIRUBIN 0.3 mg/dL (0.0-1.0); WBC,URINE 6-15 (FEW) /HPF (0-5)
[2017-06-06] MEDS ORDERED: LEVOFLOXACIN 500 MG/D5W PREMIX 100 ML IV ONE (21:05)
--- NOTE | 2017-06-06 21:32 | NUR ---
PT RESTING IN BED, TUNA SANDWICH PROVIDED TO PT PER PT REQUEST, PER MD PT OK TO HAVE FOOD.
--- NOTE | 2017-06-06 21:38 | NUR ---
PT TAKEN TO CT
[2017-06-06] MEDS ORDERED: HYDROmorphone 1 MG/ML AMP IVP ONE (22:10)
--- NOTE | 2017-06-06 22:29 | NUR ---
PT RESTING IN BED. VSS, REPOSITION FOR COMFORT.
--- NOTE | 2017-06-06 22:40 | NUR ---
Patient will be admitted to care of DR MCQUEEN. Admited to TELEMETRY. Will go to room 120 A. Belongings list completed. Report to JOSE LUIS WARE.
[2017-06-06] MEDS ORDERED: ACETAMINOPHEN 325 MG TAB PO PRN (22:45)
[2017-06-06] MEDS ORDERED: ONDANSETRON 4 MG/2 ML VIAL IVP PRN (22:45)
[2017-06-06 23:05] LABS: BARBITURATE, URINE POS. ng/ml (NEG <=200); BENZODIAZEPINE, URINE NEG. ng/mL (NEG <=200); CANNABINOID, URINE NEG. ng/mL (NEG <=50); COCAINE, URINE NEG. ng/mL (NEG <=300); OPIATE, URINE NEG. ng/mL (NEG <=2000); PHENCYCLIDINE SCREEN,URINE NEG. ng/mL (NEG <=25)
--- NOTE | 2017-06-06 23:12 | NUR ---
PT TRANSFERED TO FLOOR VIA ERLINDA RANDALL VSS DURING TRANSFER, ACCOMPANIED BY RN AND EMT.
[2017-06-06 23:17] LABS: CHOL/HDL RATIO 3.9 (1-4.5); FREE T4 (FREE THYROXINE) 1.05 ng/dL (0.76-1.46); MAGNESIUM 1.9 mg/dL (1.8-2.4); PHOSPHORUS 3.8 mg/dL (2.5-4.9); THYROID STIMULATING HORMONE 2.83 uIU/mL (0.34-3.74)
[2017-06-06] MEDS: NACL 0.9% 1,000 ML IV SCH (23:48)
[2017-06-07] VITALS: BP 111/78
--- NOTE | 2017-06-07 00:04 | NUR ---
RECEIVED REPORT FROM BOTTLE HOUSE PUMPER. PATIENT A&OX4. PATIENT IV SITE PATENT AND INTACT. PATIENT STATES PAIN 02/06, MD AWARE, WILL MEDICATE ORDERED. PATIENT STATES TROUBLE URINATING, WILL INSERT RAMOS CATHETER. PATIENT HAS SKIN TEAR ON LEFT EAR, BILATERAL BRUISING, DENIES ANY PHYSICAL ABUSE. LOWER LEFT LEG AMPUTATED, RIGHT LOWER LEG SWELLING, MD AWARE. NO SIGNS OR SYMPTOMS OF ACUTE DISTRESS NOTED. PATIENT ORIENTED TO UNIT. CALL LIGHT WITHIN REACH. WILL CONTINUE TO MONITOR.
[2017-06-07] MEDS ORDERED: HYDROmorphone 1 MG/ML AMP IVP PRN (00:05)
[2017-06-07] MEDS ORDERED: clonazePAM 0.5 MG TAB PO PRN (00:05)
[2017-06-07] MEDS ORDERED: METHOCARBAMOL 500 MG TAB PO PRN ×2 (00:05→10:51)
[2017-06-07] MEDS ORDERED: HYDROmorphone 2 MG TAB PO PRN (00:05)
[2017-06-07] MEDS ORDERED: NORTRIPTYLINE 25 MG CAP PO PRN (00:05)
[2017-06-07] MEDS ORDERED: QUEtiapine FUMARATE 100 MG TAB PO PRN (00:05)
--- NOTE | 2017-06-07 01:29 | NUR ---
RAMOS CATHETER INSERTED 16F. PATIENT TOLERATED WELL. NO SIGNS OR SYMPTOMS OF ACUTE DISTRESS. CALL LIGHT WITHIN REACH. WILL CONTINUE TO MONITOR.
[2017-06-07] MEDS: DIVALPROEX 500 MG TABER PO SCH ×2 (02:44→21:15)
[2017-06-07 04:00] VITALS: BP 102/79
--- NOTE | 2017-06-07 04:36 | NUR ---
PATIENT RESTING IN BED. PATIENT DENIES PAIN. NO SIGNS OR SYMPTOMS OF ACUTE DISTRESS NOTED. CALL LIGHT WITHIN REACH. WILL CONTINUE TO MONITOR.
[2017-06-07] MEDS ORDERED: LEVOTHYROXINE 0.088 MG TAB PO SCH (06:30)
[2017-06-07 06:59] LABS: HEMATOCRIT 28.6 % (36-48); HEMOGLOBIN 9.3 g/dL (12.0-16.0); MEAN CORPUSCULAR HEMOGLOBIN 34 pg (27-31); MEAN CORPUSCULAR HGB CONC 33 g/dL (33-37); MEAN CORPUSCULAR VOLUME 103 fL (80-94); PLATELET COUNT (AUTO) 140 K/uL (140-450); RED BLOOD CELL COUNT(AUTO) 2.77 MIL/uL (4.20-5.40); WHITE BLOOD COUNT (AUTO) 3.9 K/uL (4.8-10.8)
[2017-06-07] MEDS ORDERED: LEVOTHYROXINE 0.05 MG TAB PO SCH ×2 (07:06→07:15)
[2017-06-07 07:08] LABS: ANION GAP 10.7 (8-16); CARBON DIOXIDE 27.2 mmol/L (21-32); CREATININE 1.1 mg/dL (0.6-1.3); POTASSIUM 3.9 mmol/L (3.5-5.1)
[2017-06-07 07:15] LABS: MAGNESIUM 1.9 mg/dL (1.8-2.4); PHOSPHORUS 4.1 mg/dL (2.5-4.9)
--- NOTE | 2017-06-07 07:28 | NUR ---
ENDORSED PLAN OF CARE TO AM RN. PATIENT IN STABLE CONDITION. NO SIGNS OR SYMPTOMS OF ACUTE DISTRESS NOTED. CALL LIGHT WITHIN REACH. SAFETY MEASURES ENSURED.
--- NOTE | 2017-06-07 07:33 | NUR ---
RECEIVED REPORT FROM PM NURSE, PT A/O X 4, PLAN OF CARE DISCUSSED WITH PT, PT VERBALIZED UNDERSTANDING, PT STATES PAIN IN BACK, PAIN ACKNOWLEDGED, IV PATENT AND INTACT, SAFETY PRECAUTIONS TAKEN, CALL LIGHT WITHIN REACH.
[2017-06-07 07:58] VITALS: BP 95/67
[2017-06-07 08:11] LABS: LYMPHOCYTES % (MANUAL) 48 % (20-46); MONOCYTES % (MANUAL) 13 % (5-12)
[2017-06-07] MEDS: levETIRAcetam 500 MG TAB PO SCH ×2 (08:13→21:12)
[2017-06-07] MEDS: DOCUSATE SODIUM 100 MG GELCAP PO SCH ×2 (08:14→21:15)
[2017-06-07] MEDS: ASPIRIN 81 MG TAB.CHEW PO SCH (08:14)
[2017-06-07] MEDS: LACTOBACILLUS RHAMNOSUS GG 1 EACH CAP PO SCH (08:14)
[2017-06-07] MEDS: GABAPENTIN 100 MG CAP PO SCH (08:14)
[2017-06-07] MEDS: DONEPEZIL 10 MG TAB PO SCH (08:15)
[2017-06-07] MEDS: PANTOPRAZOLE 40 MG TABEC PO SCH (08:15)
--- NOTE | 2017-06-07 08:26 | NUR ---
DUE MEDICATIONS GIVEN, PT VERBALIZED UNDERSTANDING, PT TOLERATED MEDS, WILL CONT TO MONITOR.
--- NOTE | 2017-06-07 08:48 | NUR ---
DR LOVE MADE AWARE THAT PROCEDURE CAN NOT BE DONE BY RADIOLOGY.
--- NOTE | 2017-06-07 09:52 | NUR ---
PATIENT HAS BEEN SCREENED AND CATEGORIZED HIGH NUTRITION RISK. PATIENT WILL BE SEEN WITHIN 1-2 DAYS OF ADMISSION. 06/07/17-06/08/[address]
[2017-06-07] MEDS ORDERED: KETOROLAC 15 MG/ML VIAL IVP PRN (10:45)
--- NOTE | 2017-06-07 11:00 | NUR ---
PT RESTING IN BED ON RA, PT COMPLAINS OF 6/10 PAIN IN LOWER BACK, PAIN MEDICATION WAS GIVEN, NO OTHER S/S OF ACUTE DISTRESS, CALL LIGHT WITHIN REACH, SAFETY PRECAUTIONS TAKEN, DAUGHTER IS AT BEDSIDE, WILL CONT TO MONITOR.
[2017-06-07 11:51] VITALS: BP 97/67
--- NOTE | 2017-06-07 12:03 | NUR ---
CALLED [facility] AND SPOKE WITH YUAN, [id number]. I TOLD HER THAT THIS PATIENT IS ON OBSERVATION AND ASKED IF SHE WANTED SOME INFORMATION, H&P, ER REPORT, SENT TO HER. SHE SAID IF THE PATIENT IS ON OBSERVATION, THEY DO NOT GIVE AUTH AND IF I FAXED ANYTHING TO THEM, THEY WOULD JUST FAX IT BACK TO ME.
--- NOTE | 2017-06-07 12:51 | NUR ---
PT TAKEN TO XRAY FOR PROCEDURE, PT STABLE WITH NO S/S OF ACUTE DISTRESS.
--- NOTE | 2017-06-07 14:12 | NUR ---
PT RETURNED FROM XRAY, PT DENIES PAIN, NO S/S OF ACUTE DISTRESS, PT STABLE RESTING IN BED, CALL LIGHT WITHIN REACH, WILL CONT TO MONITOR.
--- NOTE | 2017-06-07 14:30 | NUR ---
PT SITTING IN BED ON RA, PT EATING LUNCH, NO S/S OF ACUTE DISTRESS, IV PATENT AND INTACT, PT DENIES PAIN, CALL LIGHT WITHIN REACH, WILL CONT TO MONITOR.
--- NOTE | 2017-06-07 14:48 | NUR ---
FAXED INITIAL REVIEW TO [facility] [phone] PHONE [phone] ROXANN [id number]
[2017-06-07 15:55] VITALS: BP 96/68
--- NOTE | 2017-06-07 16:53 | NUR ---
DUE MEDICATIONS GIVEN WITH EDUCATION, PT VERBALIZED UNDERSTANDING OF MEDICATION, PT TOLERATED WELL, CALL LIGHT WITHIN REACH, WILL CONT TO MONITOR.
[2017-06-07] MEDS: NACL 0.9% 1,000 ML IV SCH ×2 (16:54→22:42)
[2017-06-07] MEDS ORDERED: WARFARIN 2 MG TAB PO SCH (17:00)
--- NOTE | 2017-06-07 17:49 | NUR ---
PT SLEEPING IN BED ON RA, NO S/S OF ACUTE DISTRESS, PT CALL LIGHT WITHIN REACH, BED IN LOWEST POSITION, WILL CONT TO MONITOR.
--- NOTE | 2017-06-07 19:16 | NUR ---
ENDORSED PLAN OF CARE TO NIGHT RN, PT REMAINS STABLE.
--- NOTE | 2017-06-07 19:17 | NUR ---
RECEIVED REPORT FROM DAY NURSE, PT IN STABLE CONDITION. PT IS AAOX4, ON ROOM AIR. PT IS ON TELE MONITOR AND IS ON BEDREST. IV TO L FA 22G PATENT AND INTACT. PT HAS BILATERAL SKIN TEARS ON BOTH EARS THAT ARE SCABBED JARRED. RESPIRATIONS ARE EVEN AND UNLABORED. BOWEL SOUNDS PRESENT. SKIN IS WARM AND DRY TO TOUCH, COLOR WNL. INITIAL ASSESSMENT COMPLETED, PLAN OF CARE DISCUSSED WITH PT AT THE BEDSIDE. ALL SAFETY PRECAUTIONS MET, CALL LIGHT WITHIN REACH, WILL CONTINUE TO MONITOR.
[2017-06-07 20:00] VITALS: BP 108/67
[2017-06-07] MEDS ORDERED: DOCUSATE SODIUM 100 MG GELCAP PO SCH (21:00)
[2017-06-07] MEDS: CALCIUM CARB/VIT-D 500 MG/200 IU 1 TAB PO SCH (21:11)
[2017-06-07] MEDS: PRIMIDONE 50 MG TAB PO SCH (21:12)
[2017-06-07] MEDS: ATORVASTATIN 20 MG TAB PO SCH (21:15)
[2017-06-07] MEDS: DOXEPIN 25 MG CAP PO SCH (21:17)
[2017-06-07] MEDS: LEVOFLOXACIN 750 MG/D5W PREMIX 150 ML IV SCH (21:25)
--- NOTE | 2017-06-07 21:39 | NUR ---
PAGED DR. ZHONG AND INFORMED OF PTS PLATELETS 140, DR SAID OKAY TO GIVE HEPARIN.
[2017-06-07] MEDS: HYDROmorphone 1 MG/ML AMP IVP PRN (21:40)
[2017-06-08] VITALS: BP 111/77
[2017-06-08 04:00] VITALS: BP 90/55
[2017-06-08] MEDS: LEVOTHYROXINE 0.05 MG TAB PO SCH (05:47)
[2017-06-08 06:03] LABS: HEMATOCRIT 28.4 % (36-48); HEMOGLOBIN 9.3 g/dL (12.0-16.0); MEAN CORPUSCULAR HEMOGLOBIN 34 pg (27-31); MEAN CORPUSCULAR HGB CONC 33 g/dL (33-37); MEAN CORPUSCULAR VOLUME 103 fL (80-94); PLATELET COUNT (AUTO) 118 K/uL (140-450); RED BLOOD CELL COUNT(AUTO) 2.75 MIL/uL (4.20-5.40); RED CELL DISTRIBUTION WIDTH 16.6 % (11.6-13.7); WHITE BLOOD COUNT (AUTO) 3.7 K/uL (4.8-10.8)
[2017-06-08 06:23] LABS: PROTHROMBIN TIME 10.5 secs (10.8-13.4)
[2017-06-08 06:26] LABS: ANION GAP 8.6 (8-16); CARBON DIOXIDE 27.7 mmol/L (21-32); POTASSIUM 4.3 mmol/L (3.5-5.1)
[2017-06-08 07:20] LABS: LYMPHOCYTES % (MANUAL) 50 % (20-46); MONOCYTES % (MANUAL) 4 % (5-12)
--- NOTE | 2017-06-08 07:39 | NUR ---
ENDORSED PLAN OF CARE TO AM NURSE FOR CONTINUITY OF CARE, PT IN STABLE CONDITION. NO S/S OF DISTRESS NOTED.
--- NOTE | 2017-06-08 07:41 | NUR ---
RECEIVED REPORT FROM NIGHT RN, PT A/OX4, PLAN OF CARE DISCUSSED WITH PT, PT VERBALIZED UNDERSTANDING, PT STATES PAIN IN LOWER BACK, PT ON RA, NO OTHER S/S OF ACUTE DISTRESS, IV PATENT AND INTACT, CALL LIGHT WITHIN REACH, SAFETY PRECAUTIONS TAKEN.
[2017-06-08 08:00] VITALS: BP 105/74
[2017-06-08] MEDS: levETIRAcetam 500 MG TAB PO SCH ×2 (08:39→20:48)
[2017-06-08] MEDS: DOCUSATE SODIUM 100 MG GELCAP PO SCH ×2 (08:40→20:49)
[2017-06-08] MEDS: PANTOPRAZOLE 40 MG TABEC PO SCH (08:40)
[2017-06-08] MEDS: GABAPENTIN 100 MG CAP PO SCH (08:40)
[2017-06-08] MEDS: DONEPEZIL 10 MG TAB PO SCH (08:40)
[2017-06-08] MEDS: ASPIRIN 81 MG TAB.CHEW PO SCH (08:40)
[2017-06-08] MEDS: LACTOBACILLUS RHAMNOSUS GG 1 EACH CAP PO SCH (08:40)
--- NOTE | 2017-06-08 08:47 | NUR ---
DUE MEDICATIONS GIVEN WITH EDUCATION, PT VERBALIZED UNDERSTANDING OF MEDICATION, PT TOLERATED WELL, CALL LIGHT WITHIN REACH, SAFETY PRECAUTIONS TAKEN, WILL CONT TO MONITOR.
--- NOTE | 2017-06-08 09:50 | NUR ---
P.T. NOTES CHART REVIEWED, CLEARED BY NRSG FOR P.T. ON FIRST ATTEMPT PT SAID "I JUST WANT TO SLEEP COME BACK LATER." AT A LATER TIME THIS P.T. CAME BACK, PT FOUND AWAKE, CAREGIVER KLAUS AT BEDSIDE, PT CONTINUES TO REFUSE DESPITE ENCOURAGEMENT AND EDUCATION ON BENEFITS OF REHAB, "I REALLY JUST DON'T FEEL LIKE DOING ANYTHING TODAY." KLAUS BROUGHT THE PROSTHESIS OF THE PATIENT AND WILL FOLLOW UP ON THE ACADEMY DIRECTOR IN REGARDS TO A NEW LINER. THE CURRENT ONE IS TOO LOOSE, WHICH CAUSES A PISTONING ACTION ON PATIENT IN STANDING, ILL FITTING CAUSING HIGHER RISK FOR FALLS. TOWARDS [facility] END RN AT BEDSIDE AND AWARE OF PT'S REFUSAL FOR P.T. TX DESPITE EDUCATION OF RISKS AND BENEFITS. PVEX2
[2017-06-08] MEDS: NACL 0.9% 1,000 ML IV SCH (10:00)
--- NOTE | 2017-06-08 10:30 | NUR ---
PT SLEEPING IN BED, NO S/S OF ACUTE DISTRESS, CALL LIGHT WITHIN REACH, WILL CONT TO MONITOR.
--- NOTE | 2017-06-08 11:03 | NUR ---
CM NOTE CONCURRENT REVIEW FAXED TO [facility] / FAX# [phone], ATTN: ROXANN #[phone] [id number]
[2017-06-08 11:58] VITALS: BP 102/70
[2017-06-08] MEDS ORDERED: QUEtiapine FUMARATE 100 MG TAB PO SCH ×3 (12:20→21:00)
[2017-06-08] MEDS ORDERED: NORTRIPTYLINE 25 MG CAP PO SCH ×2 (12:20→21:00)
[2017-06-08 12:30] LABS: FOLIC ACID 3.7 ng/mL (>3.0)
--- NOTE | 2017-06-08 13:17 | NUR ---
CM NOTE MELANIE W/ CONSUELO FROM [facility]. SNF PLACEMENT FOR PHYSICAL THERAPY & IV ABX TX.
--- NOTE | 2017-06-08 13:48 | NUR ---
PT SLEEPING IN BED ON RA, NO S/S OF ACUTE DISTRESS, CALL LIGHT WITHIN REACH, SAFETY PRECAUTIONS TAKEN, WILL CONT TO MONITOR.
--- NOTE | 2017-06-08 14:00 | NUR ---
06/08/17 RD INITIAL ASSESSMENT COMPLETED PLEASE REFER TO NUTRITION ASSESSMENT UNDER CARE ACTIVITY FOR ESTIMATED NUTRITIONAL NEEDS. 1. CONTINUE REGULAR, MECHANICAL SOFT DIET TOLERATED 2. ENCOURAGE INCREASED PO INTAKES AND OK TO HONOR FOOD PREFERENCES NEEDED. --PT NOT MEETING ESTIMATED NUTRIENT NEEDS WITH CURRENT PO INTAKES 3. RD TO ADD HEALTHSHAKES BID FOR ADDITIONAL 600 KCAL AND 18 GM PROTEIN TO HELP WITH INCREASED KCAL AND PROTEIN CONSUMPTION. 4. RD TO FOLLOW-UP 3-5 DAYS, MODERATE RISK YOANDY RODNEY, RD
[2017-06-08 15:42] VITALS: BP 104/70
[2017-06-08] MEDS: WARFARIN 5 MG TAB PO SCH (16:13)
--- NOTE | 2017-06-08 19:09 | NUR ---
ENDORSED PLAN OF CARE TO NIGHT RN, PT REMAINS STABLE
--- NOTE | 2017-06-08 19:33 | NUR ---
RECEIVED FROM AM RN IN BED AWAKE AND ALERT. ABLE TO VERBALIZE SIMPLE NEEDS IN ITALIAN. BED ALARM ON. TELEMETRY MONITORING AND CALL LIGHT WITH N REACH AT BEDSIDE. PT. LBKA, PADDED SIDERAILS RT HX. SEIZURES . AFEBRILE. DX. OF UTI AND DEHYDRATION. ENCOURAGED TO CALL FOR ANY HELP SHE MAY NEED.[id number] IVF SITE WITH NS AT 50 ML/H.
[2017-06-08 19:51] VITALS: BP 105/72
[2017-06-08] MEDS: LEVOFLOXACIN 750 MG/D5W PREMIX 150 ML IV SCH (20:47)
[2017-06-08] MEDS: DIVALPROEX 500 MG TABER PO SCH (20:47)
[2017-06-08] MEDS: ATORVASTATIN 20 MG TAB PO SCH (20:48)
[2017-06-08] MEDS: PRIMIDONE 50 MG TAB PO SCH (20:48)
[2017-06-08] MEDS: CALCIUM CARB/VIT-D 500 MG/200 IU 1 TAB PO SCH (20:49)
[2017-06-08] MEDS: DOXEPIN 25 MG CAP PO SCH (20:50)
[2017-06-08] MEDS: HYDROmorphone 1 MG/ML AMP IVP PRN (21:09)
--- NOTE | 2017-06-08 22:33 | NUR ---
PT. ABLE TO HELP WITH TURNING. PILLOW SUPPORT TO PRESSURE AREAS. TURNED Q 2H. ABLE TO USE CALL LIGHT FOR HELP. A/O X 4. VERBALIZES WELL.
--- NOTE | 2017-06-09 00:48 | NUR ---
PT. VITAL SIGNS TAKEN AND TURNED TO SIDES. PT. ABLE TO HELP TURNING HERSELF. PILLOW SUPPORT TO PRESSURE AREAS. NO COMPLAINTS DONE. SLET BACK EASILY AFTER. CALL LIGHT WITH IN REACH AT ALL TIMES.
[2017-06-09 00:49] VITALS: BP 104/62
--- NOTE | 2017-06-09 02:09 | NUR ---
SLEEPING. NO RESTLESSNESS. TELEMETRY MONITORING. CALL LIGHT WITH IN REACH AND BED ALARM ON.
--- NOTE | 2017-06-09 04:00 | NUR ---
SLEEPING WELL. RAMOS CATHETER IN PLACE AND DRAINING WELL. TELEMETRY MONITORING.
[2017-06-09 04:49] VITALS: BP 101/63
[2017-06-09] MEDS: LEVOTHYROXINE 0.05 MG TAB PO SCH (05:23)
--- NOTE | 2017-06-09 06:13 | NUR ---
SLEEPING. AM PERSONAL HYGIENE RENDERED. TURNED Q 2H . TELEMETRY MONITORING.
[2017-06-09 06:18] LABS: HEMATOCRIT 29.5 % (36-48); HEMOGLOBIN 9.6 g/dL (12.0-16.0); MEAN CORPUSCULAR HEMOGLOBIN 33 pg (27-31); MEAN CORPUSCULAR HGB CONC 33 g/dL (33-37); MEAN CORPUSCULAR VOLUME 103 fL (80-94); PLATELET COUNT (AUTO) 118 K/uL (140-450); RED BLOOD CELL COUNT(AUTO) 2.88 MIL/uL (4.20-5.40); RED CELL DISTRIBUTION WIDTH 16.5 % (11.6-13.7); WHITE BLOOD COUNT (AUTO) 3.8 K/uL (4.8-10.8)
[2017-06-09 06:33] LABS: ANION GAP 5.9 (8-16); CARBON DIOXIDE 31.1 mmol/L (21-32); CREATININE 1.1 mg/dL (0.6-1.3)
[2017-06-09 06:40] LABS: MAGNESIUM 1.6 mg/dL (1.8-2.4)
[2017-06-09 06:50] LABS: PROTHROMBIN TIME 10.9 secs (10.8-13.4)
--- NOTE | 2017-06-09 07:20 | NUR ---
RECEIVED REPORT FROM ROVING TESTER LABORATORY NURSE DANTE AT BEDSIDE FOR CONTINUITY OF CARE. PT IS AWAKE AND ORIENTED. INTRODUCED SELF AND UPDATED BOARD. PT IS SITTING UP IN BED. PT DENIES CHEST PAIN. STATED THAT HIS THROAT IS FEELING BETTER WITH SIPS OF WARM WATER. LUNGS SOUNDS CLEAR TO AUSCULTATION. O2 VIA NC 2L O2 SAT 97%. NO SIGNS OF DISTRESS. BED IN LOW POSITION, WHEELS LOCKED, BED ALARM ON AND CALL LIGHT IS WITHIN REACH. WEARING YELLOW GOWN, FALL RISK ID BAND AND SIGN POSTED ON DOOR. WILL CONTINUE TO MONITOR.
[2017-06-09 07:36] LABS: EOSINOPHILS % (MANUAL) 3 % (0-4); LYMPHOCYTES % (MANUAL) 55 % (20-46); MONOCYTES % (MANUAL) 6 % (5-12)
[2017-06-09 08:00] VITALS: BP 105/67
[2017-06-09] MEDS: DONEPEZIL 10 MG TAB PO SCH (09:20)
[2017-06-09] MEDS: LACTOBACILLUS RHAMNOSUS GG 1 EACH CAP PO SCH (09:20)
[2017-06-09] MEDS: PANTOPRAZOLE 40 MG TABEC PO SCH (09:20)
[2017-06-09] MEDS: GABAPENTIN 100 MG CAP PO SCH (09:20)
[2017-06-09] MEDS: ASPIRIN 81 MG TAB.CHEW PO SCH (09:20)
[2017-06-09] MEDS: levETIRAcetam 500 MG TAB PO SCH (09:20)
[2017-06-09] MEDS: NACL 0.9% 1,000 ML IV SCH (09:21)
[2017-06-09] MEDS: DOCUSATE SODIUM 100 MG GELCAP PO SCH (09:21)
--- NOTE | 2017-06-09 09:45 | NUR ---
PT REQUESTED DILAUDID FOR PAIN. PULLED MED FROM [facility]. SAW ORDER FOR D/C DILAUDID. WASTED 1MG VIAL. INFORMED PT OF CHANGE. VERBALIZED UNDERSTANDING. ADMINISTERED SCHEDULED MED. PT TOLERATED WELL. FLUSHED IV ON L FA 22 WITH NS 10ML. PT DENIED PAIN OR DISCOMFORT FROM FLUSH. NO SIGNS OF DISTRESS. PT IS LYING IN BED, LIGHTS DIM, CURTAINS AND DOOR CLOSED. NO SIGNS OF DISTRESS WILL CONTINUE TO MONITOR.
--- NOTE | 2017-06-09 11:04 | NUR ---
SPOKE WITH DR. LOVE. HE SAID THIS PATIENT WILL NEED TO GO TO SNF FOR IV ANTIBIOTICS AND PT. I CALLED [facility] AND SPOKE WITH YUAN. SHE SAID THE CM FOR THIS PATIENT NOW IS SHAWANDA ALSTON, X [phone]. I TOLD YUAN I SPOKE WITH LEONOR AT [facility] AND WILL FAX INQUIRY WHEN I GET THE ORDER.
--- NOTE | 2017-06-09 11:34 | NUR ---
CM NOTE CONCURRENT REVIEW FAXED TO [facility] [phone] ATTN: SHAWANDA VELASCOS, [phone]. RECEIVED ORDER FOR SNF PLACEMENT. FAXED INQUIRY TO [facility] [phone] # [phone].
[2017-06-09] MEDS: HYDROcodone/APAP 5/325 MG 1 TAB TAB PO SCH ×2 (11:41→16:31)
[2017-06-09 12:00] VITALS: BP 105/68
--- NOTE | 2017-06-09 13:41 | NUR ---
GAVE REPORT TO RECEIVING RN AT [place].
--- NOTE | 2017-06-09 13:44 | NUR ---
RECEIVED A CALL FROM LEONOR FROM [facility]. SHE SAID THAT SHE NEEDS TO SPEAK WITH HER MOTORIZED [place] COMMANDING OFFICER ABOUT TAKING THIS PATIENT AGAIN. Addendum: 06/09/17 at 1347 by Desi Gentile CM CM NOTE FAXED INQUIRY TO: [facility] [phone] ATTN: [place] PH# [phone] [facility] [phone] ATTN: [facility] PH# [phone]
--- NOTE | 2017-06-09 14:21 | NUR ---
SPOKE WITH LEONOR AT [facility]. THEY WILL NOT BE ABLE TO TAKE THIS PATIENT.
--- NOTE | 2017-06-09 14:44 | NUR ---
SPOKE WITH YUAN FROM [facility] [phone]. SHE GAVE THE AUTH FOR TRANSPORT AND SNF. AUTH FOR SNF, ONLY IF CONTRACTED WITH [facility], IS [id number] FOR TRANSPORT AUTH IS [id number]. FOR TRANSPORT, USE [facility], PHONE [phone]. LET [facility] KNOW WHICH SNF PATIENT GOES.
--- NOTE | 2017-06-09 14:50 | NUR ---
CM NOTE SPOKE WITH CARINA OF [facility] FORMERLY CALLED [facility] PH# [phone] AND SHE SAID THAT THEIR DON IS STILL REVIEWING THE INQUIRY. I GAVE HER THE NUMBER TO THE NURSING FLOOR WHERE PATIENT IS TO INFORM CHARGE NURSE IF THEY DECIDE LATER IF THEY WILL BE ABLE TO ACCEPT PATIENT OR NOT. CHARGE NURSE SHMUEL BRANDT.
--- NOTE | 2017-06-09 14:59 | NUR ---
[facility] CALLED. CANNOT TAKE THIS PATIENT.
--- NOTE | 2017-06-09 15:02 | NUR ---
RECEIVED A CALL FROM DENIA FROM [facility]. SHE IS REVIEWING THE INFORMATION.
--- NOTE | 2017-06-09 15:56 | NUR ---
RECEIVED A CALL FROM DENIA FROM [facility] . THEY HAVE ACCEPTED THE PATIENT. SHE CAN GO TO ROOM 12A UNDER [address] OG. [address]ESS IS [id number] [facility] [id number] PHONE [phone]. THE AUTH FOR THE SNF IS [id number]. PER YUAN FROM [facility], [facility] AUTH IS [id number]. THE AUTH FOR TRANSPORT IS [id number]. YUAN SAID TO USE SECURE TRANSPORT, PHONE [phone]. I CALLED YUAN FROM [facility] AND INFORMED HER THAT PATIENT WILL GO TO [facility], USED TO BE [facility].
[2017-06-09 16:00] VITALS: BP 131/87
[2017-06-09] MEDS: WARFARIN 5 MG TAB PO SCH (16:33)
[2017-06-09] MEDS ORDERED: LACT10CA PO (17:14)
[2017-06-09] MEDS ORDERED: PANT40EC28 PO (17:14)
[2017-06-09] MEDS ORDERED: DEPER500 PO (17:14)
[2017-06-09] MEDS ORDERED: CALC-846 PO (17:14)
[2017-06-09] MEDS ORDERED: SYN.05 PO (17:14)
[2017-06-09] MEDS ORDERED: PRIM50TA21 PO (17:14)
[2017-06-09] MEDS ORDERED: ACET-9525 PO (17:14)
[2017-06-09] MEDS ORDERED: ASPI81CT95 PO (17:14)
[2017-06-09] MEDS ORDERED: DONE10TA10 PO (17:14)
[2017-06-09] MEDS ORDERED: ATOR20TA40 PO (17:14)
[2017-06-09] MEDS ORDERED: WARF5TAB1 PO (17:14)
[2017-06-09] MEDS ORDERED: CLON0.5T4 PO (17:14)
[2017-06-09] MEDS ORDERED: GABA-636 PO (17:14)
[2017-06-09] MEDS ORDERED: QUET100T44 PO (17:14)
[2017-06-09] MEDS ORDERED: ACET-1182 PO (17:14)
[2017-06-09] MEDS ORDERED: SINE25 PO (17:14)
[2017-06-09] MEDS ORDERED: KEP500 PO (17:14)
[2017-06-09] MEDS ORDERED: DOCU-299 PO (17:14)
--- NOTE | 2017-06-09 17:56 | NUR ---
CALLED JESSICA AND GAVE REPORT TO JOSÉ AMAYA.
--- NOTE | 2017-06-09 18:30 | NUR ---
D/C'D IV FROM LEFT FA, D/C'D [facility]OS CATHETER. GAVE PT D/C INSTRUCTIONS AND FORMS SIGNED. PT VERBALIZED UNDERSTANDING
--- NOTE | 2017-06-09 19:25 | NUR ---
PT D/C'D TO [facility]SF[facility]. PT LEFT WITH ALL PERSONAL BELONGINGS. ID BAND REMOVED TELE BOX REMOVED. PT LEFT VIA WHEELCHAIR ACCOMPANIED BY TRANSPORTER IN STABLE CONDITION.
[2017-06-09] MEDS ORDERED: QUEtiapine FUMARATE 100 MG TAB PO SCH (21:00)
== END 2017-06-09 19:25 | DRG 469 ==
LOC: MED 20:13 → MTU 22:46 → OBSVTOIN 06-07 08:18
PROVIDERS: ADMIT Family Medicine; ATTEND Family Medicine
DX: N17.0 Acute kidney failure with tubular necrosis (principal); G93.41 Metabolic encephalopathy; G54.7 Phantom limb syndrome without pain; M86.8X8 Other osteomyelitis, other site; E86.0 Dehydration; N39.0 Urinary tract infection, site not specified; F41.9 Anxiety disorder, unspecified; E03.9 Hypothyroidism, unspecified; N32.81 Overactive bladder; G40.909 Epilepsy, unspecified, not intractable, without status epilepticus; D50.9 Iron deficiency anemia, unspecified; F31.9 Bipolar disorder, unspecified; G89.29 Other chronic pain; J45.909 Unspecified asthma, uncomplicated; M54.9 Dorsalgia, unspecified; Z88.0 Allergy status to penicillin; Z88.6 Allergy status to analgesic agent; Z86.718 Personal history of other venous thrombosis and embolism; Z91.81 History of falling; Z91.19 Patient's noncompliance with other medical treatment and regimen; Z88.8 Allergy status to other drugs, medicaments and biological substances; Z79.82 Long term (current) use of aspirin; Z89.512 Acquired absence of left leg below knee
CPT/HCPCS: 96361; 96365; 96375; 99285; G0378; 36415; 71010; 74430; 80048; 80053; 80173; 80305; 81001; 82150; 82607; 82728; 82746; 83036; 83540; 83605; 83690; 83735; 83880; 84100; 84439; 84443; 84484; 85025; 85045; 85610; 85730; 87040; 87077; 87081; 87086; 87186; 93005; 93970; 97110; 97116; 97530; C1758; J1170; J1644; J1885; J1956; J7030; Q0092

== ENCOUNTER 2017-09-26 01:34 | Inpatient (IN) | payer OTHER ==
[~2017-09-26] VITALS: Ht 172.7 cm; Wt 81.6 kg
[~2017-09-26 01:34] MED LIST changes: +ACET-1182 PO; +ACET-9525 PO; -CALC-53 PO; +CALC-846 PO; +CLON0.5T4 PO; -CLON1TAB PO; +DEPER500 PO; -DIT5 PO; -DIVA500T1 PO; -DOXE50CA10 PO; +GABA-636 PO; -GABA600T1 PO; -HYDR2TAB6 PO; +KEP500 PO; +LACT10CA PO; -LEVE750T3 PO; -LEVO0.083 PO; -LEVO250T2 PO; -METH750T5 PO; -OMEP20TA56 PO; -PAM25 PO; +PANT40EC28 PO; +PRIM50TA21 PO; -PRIM50TA23 PO; +QUET100T44 PO; -QUET400T PO; +SINE25 PO; +SYN.05 PO; +WARF5TAB1 PO
[2017-09-26 01:39] VITALS: BP 99/76
[2017-09-26 01:58] LABS: HEMATOCRIT 35.8 % (36-48); HEMOGLOBIN 11.7 g/dL (12.0-16.0); MEAN CORPUSCULAR HEMOGLOBIN 32 pg (27-31); MEAN CORPUSCULAR HGB CONC 33 g/dL (33-37); MEAN CORPUSCULAR VOLUME 99 fL (80-94); PLATELET COUNT (AUTO) 161 K/uL (140-450); RED BLOOD CELL COUNT(AUTO) 3.61 MIL/uL (4.20-5.40); RED CELL DISTRIBUTION WIDTH 12.2 % (11.6-13.7); WHITE BLOOD COUNT (AUTO) 5.6 K/uL (4.8-10.8)
[2017-09-26 02:07] LABS: ANION GAP 11.8 (8-16); CARBON DIOXIDE 26.8 mmol/L (21-32); CHLORIDE 104 mmol/L (98-107); GFR ARICAN-AMERICAN 75 mL/min (>90); GLUCOSE 104 mg/dL (74-106); POTASSIUM 3.6 mmol/L (3.5-5.1); SODIUM SERUM 139 mmol/L (136-145); UREA NITROGEN, BLOOD 24 mg/dL (7-18)
[2017-09-26 02:12] LABS: EOSINOPHILS % (MANUAL) 1 % (0-4); LYMPHOCYTES % (MANUAL) 57 % (20-46); MONOCYTES % (MANUAL) 7 % (5-12)
[2017-09-26 02:13] LABS: ACETAMINOPHEN < 0.5 ug/ml (10-30); ALBUMIN 3.1 g/dL (3.4-5.0); ASPARTATE AMINOTRANSFERASE 11 U/L (15-37); SALICYLATE 3.2 mg/dL (2.8-20.0); TOTAL BILIRUBIN 0.3 mg/dL (0.0-1.0)
[2017-09-26] MEDS ORDERED: NACL 0.9% 2,000 ML IV ONE (02:30)
[2017-09-26 02:51] LABS: BARBITURATE, URINE POS. ng/ml (NEG <=200); BENZODIAZEPINE, URINE NEG. ng/mL (NEG <=200); CANNABINOID, URINE NEG. ng/mL (NEG <=50); COCAINE, URINE NEG. ng/mL (NEG <=300); OPIATE, URINE NEG. ng/mL (NEG <=2000); PHENCYCLIDINE SCREEN,URINE NEG. ng/mL (NEG <=25)
[2017-09-26] MEDS ORDERED: NACL 0.9% 1,000 ML IV ONE (05:05)
[2017-09-26] MEDS ORDERED: KETOROLAC 30 MG/ML VIAL IVP ONE (09:20)
[2017-09-26] MEDS ORDERED: NACL 0.9% 1,000 ML IV SCH (09:56)
[2017-09-26] MEDS ORDERED: MORPHINE SULFATE 2 MG/ML SYR IVP PRN (10:00)
[2017-09-26] MEDS ORDERED: HYDROcodone/APAP 7.5/325 MG 1 TAB PO PRN (10:00)
[2017-09-26] MEDS ORDERED: ACETAMINOPHEN 325 MG TAB PO PRN (10:00)
[2017-09-26] MEDS ORDERED: DOCUSATE SODIUM 100 MG GELCAP PO PRN (10:00)
[2017-09-26] MEDS ORDERED: ONDANSETRON 4 MG/2 ML VIAL IM/IVP PRN (10:00)
[2017-09-26] MEDS ORDERED: clonazePAM 0.5 MG TAB PO PRN ×2 (10:05→11:05)
[2017-09-26 10:39] VITALS: BP 119/65
[2017-09-26 11:27] LABS: PROTHROMBIN TIME 10.7 secs (10.8-13.4)
[2017-09-26 11:29] LABS: HEMATOCRIT 33.7 % (36-48); HEMOGLOBIN 11.1 g/dL (12.0-16.0); MEAN CORPUSCULAR HEMOGLOBIN 33 pg (27-31); MEAN CORPUSCULAR HGB CONC 33 g/dL (33-37); MEAN CORPUSCULAR VOLUME 100 fL (80-94); PLATELET COUNT (AUTO) 141 K/uL (140-450); RED BLOOD CELL COUNT(AUTO) 3.37 MIL/uL (4.20-5.40); RED CELL DISTRIBUTION WIDTH 12.2 % (11.6-13.7)
[2017-09-26 11:43] LABS: LYMPHOCYTES % (MANUAL) 47 % (20-46); MONOCYTES % (MANUAL) 9 % (5-12)
[2017-09-26 11:55] LABS: CHOL/HDL RATIO 3.7 (1-4.5); MAGNESIUM 1.8 mg/dL (1.8-2.4); PHOSPHORUS 3.8 mg/dL (2.5-4.9)
[2017-09-26 12:20] LABS: FREE T4 (FREE THYROXINE) 0.7 ng/dL (0.76-1.46); THYROID STIMULATING HORMONE 4.27 uIU/mL (0.34-3.74)
[2017-09-26] MEDS ORDERED: BENZ1TAB42 PO (13:52)
[2017-09-26] MEDS ORDERED: FERR-252 PO (14:04)
[2017-09-26] MEDS ORDERED: CLON1TAB PO (14:04)
[2017-09-26] MEDS ORDERED: KEP500 PO (14:04)
[2017-09-26] MEDS ORDERED: TOPI50TA PO (14:04)
[2017-09-26] MEDS ORDERED: DIVA500T1 PO ×2 (14:04)
[2017-09-26] MEDS ORDERED: BACL10TA4 PO (14:04)
[2017-09-26] MEDS ORDERED: IMI25 PO (14:04)
[2017-09-26] MEDS ORDERED: [UNRECOGNIZED DRUG - CODE] PO (14:04)
[2017-09-26] MEDS ORDERED: PAM25 PO (14:04)
[2017-09-26] MEDS ORDERED: QUET100T PO (14:04)
[2017-09-26] MEDS ORDERED: GABA400C PO (14:04)
[2017-09-26] MEDS ORDERED: LEVO0.083 PO (14:04)
[2017-09-26] MEDS ORDERED: QUET200T PO (14:04)
[2017-09-26] MEDS ORDERED: WARFARIN 5 MG TAB PO SCH (17:00)
[2017-09-26] MEDS ORDERED: DOCUSATE SODIUM 100 MG GELCAP PO SCH (21:00)
[2017-09-26] MEDS ORDERED: CALCIUM CARB/VIT-D 500 MG/200 IU 1 TAB PO SCH (21:00)
[2017-09-26] MEDS ORDERED: DIVALPROEX 500 MG TABEC PO SCH (21:00)
[2017-09-26] MEDS ORDERED: QUEtiapine FUMARATE 100 MG TAB PO SCH (21:00)
[2017-09-26] MEDS ORDERED: PRIMIDONE 50 MG TAB PO SCH ×2 (21:00)
[2017-09-26] MEDS ORDERED: DIVALPROEX 500 MG TABER PO SCH (21:00)
[2017-09-26] MEDS ORDERED: ATORVASTATIN 20 MG TAB PO SCH (21:00)
[2017-09-26] MEDS ORDERED: DOXEPIN 25 MG CAP PO SCH (21:00)
[2017-09-26] MEDS ORDERED: DONEPEZIL 10 MG TAB PO SCH (21:00)
[2017-09-26] MEDS ORDERED: levETIRAcetam 100 MG/ML ORASYR PO SCH ×2 (21:00)
[2017-09-26] MEDS ORDERED: GABAPENTIN 300 MG CAP PO SCH (21:00)
[2017-09-27] MEDS ORDERED: LEVOTHYROXINE 0.1 MG TAB PO SCH (06:30)
[2017-09-27 08:18] LABS: T4 (THYROXINE) 3.8 ug/dL (4.5-12.0)
[2017-09-27] MEDS ORDERED: GABAPENTIN 100 MG CAP PO SCH (09:00)
[2017-09-27] MEDS ORDERED: TOPIRAMATE 25 MG TAB PO SCH (09:00)
[2017-09-27] MEDS ORDERED: DIVALPROEX 500 MG TABEC PO SCH (09:00)
[2017-09-27] MEDS ORDERED: PANTOPRAZOLE 40 MG TABEC PO SCH (09:00)
[2017-09-27] MEDS ORDERED: DONEPEZIL 10 MG TAB PO SCH (09:00)
[2017-09-27 15:10] LABS: FOLIC ACID 7.7 ng/mL (>3.0)
[2017-09-28] MEDS ORDERED: QUEtiapine FUMARATE 100 MG TAB PO SCH ×2 (09:00→21:00)
== END 2017-09-26 15:45 | disposition designated cancer center or children's hospital (05) | DRG 812 ==
LOC: MED 01:34 → MTU 09:56
PROVIDERS: ADMIT Family Medicine Sports Medicine; ATTEND Family Medicine Sports Medicine
DX: T43.592A Poisoning by other antipsychotics and neuroleptics, intentional self-harm, initial encounter (principal); N17.0 Acute kidney failure with tubular necrosis; G92 Toxic encephalopathy; G40.909 Epilepsy, unspecified, not intractable, without status epilepticus; E78.5 Hyperlipidemia, unspecified; E03.9 Hypothyroidism, unspecified; F31.9 Bipolar disorder, unspecified; F41.1 Generalized anxiety disorder; K21.9 Gastro-esophageal reflux disease without esophagitis; Z88.6 Allergy status to analgesic agent; Z88.0 Allergy status to penicillin; Z88.8 Allergy status to other drugs, medicaments and biological substances; Z89.512 Acquired absence of left leg below knee; Y92.89 Other specified places as the place of occurrence of the external cause; Z91.19 Patient's noncompliance with other medical treatment and regimen
CPT/HCPCS: 36415; 71045; 80053; 80173; 80305; 82140; 82150; 82550; 82607; 82746; 83036; 83690; 83735; 83880; 84100; 84436; 84439; 84443; 84479; 84484; 85025; 85610; 85730; 87081; 96361; 96374; 99285; G0480; G0482; J1885; J7030; Q0092

== ENCOUNTER 2020-02-13 11:30 | Outpatient (CLI) | payer OTHER, SELFPAY ==
[~2020-02-13 11:30] MED LIST changes: -ACET-9525 PO; +BACL10TA4 PO; +BENZ-203 PO; +CALC-55 PO; -CALC-846 PO; -CLON0.5T4 PO; +CLON1TAB PO; -DEPER500 PO; +DIVA500T1 PO; +FERR-252 PO; -GABA-636 PO; +GABA400C PO; +IMI25 PO; -LACT10CA PO; +LEVO0.083 PO; +PAM25 PO; -PRIM50TA21 PO; +QUET100T PO; -QUET100T44 PO; +QUET200T PO; -SYN.05 PO; +TOPI50TA PO; -WARF2TAB1 PO; -WARF5TAB1 PO; +[UNRECOGNIZED DRUG - CODE] PO
== END 2020-02-13 23:59 | disposition home or self-care (01) ==
LOC: MLB 11:30 → EDSTATUS 02-21 16:20
PROVIDERS: ATTEND Internal Medicine Gastroenterology
DX: Z01.818 Encounter for other preprocedural examination (principal); Z11.59 Encounter for screening for other viral diseases; R13.10 Dysphagia, unspecified; Z12.11 Encounter for screening for malignant neoplasm of colon; Z80.0 Family history of malignant neoplasm of digestive organs
CPT/HCPCS: U0003-CS

== ENCOUNTER 2020-09-03 22:20 | Emergency (ER) | payer OTHER, SELFPAY ==
[~2020-09-03] VITALS: Ht 175.3 cm; Wt 68.0 kg
[~2020-09-03 22:20] MED LIST changes: -PANT40EC28 PO; +PANT40EC56 PO
[2020-09-03 22:23] VITALS: BP 127/68
--- NOTE | 2020-09-03 22:23 | NUR ---
[facility] TO ER BED 3
--- NOTE | 2020-09-03 22:25 | NUR ---
TO BED 3 VIA [facility] WITH C/O CP. ATTACHED TO CM = SR WITHOUT ECTOPY.DENIES N/V/D; SKIN IS PINK/WARM/DRY; AAOX4 LUNGS CLEAR BL; HR EVEN AND REGULAR; PT DENIES ANY FEVER, CP, SOB, OR COUGH AT THIS TIME; PATIENT STATES PAIN OF 10/10 AT THIS TIME; VSS; PATIENT POSITIONED FOR COMFORT; HOB ELEVATED; BEDRAILS UP X2; BED DOWN. ER MD MADE AWARE OF PT STATUS. PT IS ANXIOUS WITH MULTIPLE COMPLAINTS
[2020-09-03 22:56] LABS: BASOPHILS % (AUTO) 0.7 % (0.0-2.0); EOSINOPHILS # (AUTO) 0.1 K/uL (0-0.4); EOSINOPHILS % (AUTO) 1.6 % (0.0-4.0); HEMATOCRIT 35.1 % (36-48); HEMOGLOBIN 11.7 g/dL (12.0-16.0); LYMPHOCYTES # (AUTO) 1.7 K/uL (2.5-16.5); LYMPHOCYTES % (AUTO) 34.9 % (20.5-51.1); MEAN CORPUSCULAR HEMOGLOBIN 32 pg (27-31); MEAN CORPUSCULAR HGB CONC 33 g/dL (33-37); MEAN CORPUSCULAR VOLUME 96.2 fL (80-94); MONOCYTES # (AUTO) 0.4 K/uL (0.8-1.0); MONOCYTES % (AUTO) 8.2 % (1.7-9.3); NEUTROPHILS # (AUTO) 2.7 K/uL (1.8-7.7); NEUTROPHILS % (AUTO) 54.6 % (42.2-75.2); PLATELET COUNT (AUTO) 236 K/uL (140-450); RED BLOOD CELL COUNT(AUTO) 3.65 MIL/uL (4.20-5.40); RED CELL DISTRIBUTION WIDTH 14.4 % (11.6-13.7); WHITE BLOOD COUNT (AUTO) 4.9 K/uL (4.8-10.8)
[2020-09-03 23:17] LABS: PROTHROMBIN TIME 9.5 secs (10.8-13.4)
[2020-09-03 23:20] LABS: ALBUMIN 3.8 g/dL (3.4-5.0); ANION GAP 10.2 (8-16); CARBON DIOXIDE 29.6 mmol/L (21-32); CREATININE 1.1 mg/dL (0.6-1.3); POTASSIUM 3.8 mmol/L (3.5-5.1); TOTAL BILIRUBIN 0.4 mg/dL (0.0-1.0)
[2020-09-03] MEDS: KETOROLAC 15 MG/ML VIAL IVP ONE (23:42)
[2020-09-04 00:36] VITALS: BP 127/68
--- NOTE | 2020-09-04 00:36 | NUR ---
READY FOR DISCHARGE. IV D/C'D PT STATES MINIMAL RELIEF FROM EARLIER PAIN MEDICATION. DISCHARGED TO LOBBY. WILL WAIT FOR TAXI. ACI AND RX IN POSESSION WITH UNDERSTANDING EXPRESSED
== END 2020-09-04 00:36 | disposition home or self-care (01) ==
LOC: MED 22:20
DX: R07.81 Pleurodynia (principal); E07.9 Disorder of thyroid, unspecified; I51.9 Heart disease, unspecified; E78.00 Pure hypercholesterolemia, unspecified; Z88.0 Allergy status to penicillin; Z88.5 Allergy status to narcotic agent; Z88.8 Allergy status to other drugs, medicaments and biological substances; Z79.899 Other long term (current) drug therapy
CPT/HCPCS: 36415; 71045; 80053; 83880; 84484; 85025; 85610; 85730; 93005; 96374; 99285; J1885

== ENCOUNTER 2022-12-10 15:33 | Inpatient (IN) | payer OTHER ==
[~2022-12-10] VITALS: Ht 167.6 cm; Wt 77.1 kg
[~2022-12-10 15:33] MED LIST changes: -BENZ-203 PO; +BENZ-315 PO
[2022-12-10] MEDS ORDERED: NACL 0.9% 1,000 ML IV ONE (15:50)
[2022-12-10] MEDS ORDERED: ONDANSETRON 4 MG/2 ML VIAL IVP ONE (15:50)
[2022-12-10] MEDS ORDERED: HYDROmorphone PFS 2 MG/ML SYR IVP ONE ×2 (15:50→19:05)
[2022-12-10 15:56] VITALS: BP 150/65
--- NOTE | 2022-12-10 15:59 | NUR ---
TO BED WITH MEDICS, STABLE NOW.
--- NOTE | 2022-12-10 16:00 | NUR ---
[facility] TO ER BED 9
[2022-12-10 16:29] LABS: BASOPHILS % (AUTO) 0.2 % (0.0-2.0); EOSINOPHILS % (AUTO) 0.5 % (0.0-4.0); HEMATOCRIT 31.3 % (36-48); HEMOGLOBIN 10.6 g/dL (12.0-16.0); LYMPHOCYTES % (AUTO) 11.1 % (20.5-51.1); MEAN CORPUSCULAR HEMOGLOBIN 33 pg (27-31); MEAN CORPUSCULAR HGB CONC 34 g/dL (33-37); MEAN CORPUSCULAR VOLUME 96.8 fL (80-94); MONOCYTES # (AUTO) 0.6 K/uL (0.8-1.0); MONOCYTES % (AUTO) 6.2 % (1.7-9.3); NEUTROPHILS # (AUTO) 7.4 K/uL (1.8-7.7); PLATELET COUNT (AUTO) 190 K/uL (140-450); RED BLOOD CELL COUNT(AUTO) 3.23 MIL/uL (4.20-5.40); RED CELL DISTRIBUTION WIDTH 15.3 % (11.6-13.7)
--- NOTE | 2022-12-10 16:40 | NUR ---
57 y/o female biba c/o abdominal pain x 2 days. Patient's abdomen is tender to touch. Patient is nauseous. Denies fevers, vomiting, constipation and diarrhea. Patient is taking Tylenol with minimal relief. Patient's last BM 12/08/22. Patient is noted with left BKA. Patient is noted with swelling and bruising to right aguilar. Patient has + right pedal pulse. Medical History:Third Stage CKD, Bipolar, Manic Depressice, ALLERGY: PENICILLIN, MORPHINE, DILANTIN
[2022-12-10 16:53] LABS: ANION GAP 10.3 (8-16); CARBON DIOXIDE 28.6 mmol/L (21-32); CREATININE 1.1 mg/dL (0.6-1.3); POTASSIUM 3.9 mmol/L (3.5-5.1); TOTAL BILIRUBIN 0.8 mg/dL (0.0-1.0)
--- NOTE | 2022-12-10 17:11 | NUR ---
Patient taken to CT.
[2022-12-10] MEDS ORDERED: HYDROmorphone PFS 2 MG/ML SYR ONE ×2 (17:37→21:24)
[2022-12-10] MEDS ORDERED: ONDANSETRON 4 MG/2 ML VIAL ONE (17:37)
--- NOTE | 2022-12-10 18:32 | NUR ---
The patient's care was reviewed and supervised by MATHEUS PINA RN.
[2022-12-10] MEDS ORDERED: metroNIDAZOLE 500 MG/NS PREMIX 100 ML IV ONE ×2 (19:05→21:26)
--- NOTE | 2022-12-10 19:26 | NUR ---
Report given to JOSE LUIS Yancey for transfer of care.
[2022-12-10] MEDS ORDERED: POTASSIUM CHLORIDE 10 MEQ TABER PO PRN (19:45)
[2022-12-10] MEDS ORDERED: ACETAMINOPHEN 325 MG TAB PO PRN (19:45)
[2022-12-10] MEDS ORDERED: KCL 20 MEQ IN 100 mL PREMIX 200 ML IV PRN (19:45)
[2022-12-10] MEDS ORDERED: MORPHINE SULFATE 4 MG/ML SYR IVP PRN (19:45)
[2022-12-10] MEDS ORDERED: LORazepam 1 MG TAB PO PRN (19:45)
[2022-12-10] MEDS ORDERED: HYDROcodone/APAP 5/325 MG 1 TAB TAB PO PRN (19:45)
[2022-12-10] MEDS ORDERED: MAG SULF 2000 MG/WATER PREMIX 50 ML IV PRN (19:45)
[2022-12-10] MEDS ORDERED: cefTRIAXone 1,000 MG VIAL ONE (19:46)
[2022-12-10] MEDS: NACL 0.9% 1,000 ML IV SCH (20:23)
--- NOTE | 2022-12-10 21:12 | NUR ---
Patient will be admitted to care of Micki AMAYA. Admited to Med/Surg. Will go to room 106B. Belongings list completed. Report to Rosie AMAYA.
[2022-12-10] MEDS ORDERED: TRAZ-343 PO (22:24)
[2022-12-10] MEDS ORDERED: AMIT10TA36 PO (22:24)
[2022-12-10] MEDS ORDERED: VITA1TAB44 PO (22:24)
[2022-12-10] MEDS ORDERED: HYDR-1090 PO (22:24)
[2022-12-10] MEDS ORDERED: CETI1SOL PO (22:24)
[2022-12-10] MEDS ORDERED: VIBE75TA PO (22:24)
[2022-12-10] MEDS ORDERED: METH-1681 PO (22:24)
[2022-12-10] MEDS ORDERED: ALEN70TA PO (22:24)
[2022-12-10] MEDS ORDERED: SENN-3 PO (22:24)
[2022-12-10] MEDS ORDERED: OMEP20EC11 PO (22:24)
[2022-12-10] MEDS ORDERED: LAM25 PO (22:24)
[2022-12-10] MEDS ORDERED: VORT20TA PO (22:24)
[2022-12-10] MEDS ORDERED: ATOG60TA PO (22:24)
[2022-12-10 22:27] LABS: BILIRUBIN,URINE NEGATIVE (NEGATIVE); BLOOD, URINE NEGATIVE (NEGATIVE); COLOR,URINE YELLOW (YELLOW); LEUKOCYTE ESTERASE ,URINE 1+ (NEGATIVE); NITRITE, URINE POSITIVE (NEGATIVE); UGLUCOSE NEGATIVE (NEGATIVE)
[2022-12-10 22:37] LABS: APPEARANCE,URINE SLIGHTLY HAZY (CLEAR)
[2022-12-10 22:38] LABS: RBC,URINE NONE SEEN /HPF (0-5)
--- NOTE | 2022-12-10 23:35 | NUR ---
PT IS IN SEVERE ABDOMINAL PAIN, PAIN MEDICATION ON THE LIST FOR SEVERE PAIN IS MORPHINE, PT IS ALLERGY TO MORPHINE. REPORTED TO DR. OJANNE MD DISCONTINUED MORPHINE AND PRESCRIBED DILAUDID 1 MG IV Q4H FOR SEVERE PAIN.
[2022-12-10] MEDS: ONDANSETRON 4 MG/2 ML VIAL IVP PRN (23:36)
--- NOTE | 2022-12-10 23:36 | NUR ---
PT VERBALIZED OF HAVING NAUSEA, NAUSEA MEDICATION ZOFRAN ADMINISTERED ORDERED.
[2022-12-10] MEDS: LACTULOSE 20 GM/30 ML UDC PO SCH (23:55)
[2022-12-10] MEDS: SENNA 8.6 MG TAB PO SCH (23:55)
[2022-12-11] MEDS: HYDROmorphone 1 MG/ML AMP IVP PRN ×2 (00:19→05:04)
--- NOTE | 2022-12-11 00:19 | NUR ---
PT COMPLAINTS OF ABDOMINAL PAIN 04/09, PAIN MEDICATION DILAUDID ADMINISTERED ORDER.
[2022-12-11] MEDS: ZOLPIDEM 5 MG TAB PO PRN (00:49)
[2022-12-11 04:00] VITALS: BP 126/65
[2022-12-11] MEDS: metroNIDAZOLE 500 MG/NS PREMIX 100 ML IV SCH ×3 (05:51→20:28)
[2022-12-11 06:21] LABS: ANION GAP 10.9 (8-16); CARBON DIOXIDE 25.7 mmol/L (21-32); POTASSIUM 3.6 mmol/L (3.5-5.1)
[2022-12-11 06:54] LABS: BASOPHILS % (AUTO) 0.2 % (0.0-2.0); EOSINOPHILS # (AUTO) 0.1 K/uL (0-0.4); EOSINOPHILS % (AUTO) 1.1 % (0.0-4.0); HEMATOCRIT 31.3 % (36-48); HEMOGLOBIN 10.5 g/dL (12.0-16.0); LYMPHOCYTES # (AUTO) 0.9 K/uL (2.5-16.5); LYMPHOCYTES % (AUTO) 11.5 % (20.5-51.1); MEAN CORPUSCULAR HEMOGLOBIN 33 pg (27-31); MEAN CORPUSCULAR HGB CONC 34 g/dL (33-37); MEAN CORPUSCULAR VOLUME 98.3 fL (80-94); MONOCYTES # (AUTO) 0.4 K/uL (0.8-1.0); MONOCYTES % (AUTO) 4.7 % (1.7-9.3); NEUTROPHILS # (AUTO) 6.3 K/uL (1.8-7.7); NEUTROPHILS % (AUTO) 82.5 % (42.2-75.2); PLATELET COUNT (AUTO) 180 K/uL (140-450); RED BLOOD CELL COUNT(AUTO) 3.18 MIL/uL (4.20-5.40); RED CELL DISTRIBUTION WIDTH 15.1 % (11.6-13.7); WHITE BLOOD COUNT (AUTO) 7.7 K/uL (4.8-10.8)
--- NOTE | 2022-12-11 07:24 | NUR ---
PATIENT HAS BEEN SCREENED AND CATEGORIZED LOW NUTRITION RISK. PATIENT WILL BE SEEN WITHIN 7 DAYS OF ADMISSION. 12/10/22-12/17/[address]
[2022-12-11 08:00] VITALS: BP 123/73
[2022-12-11] MEDS: NACL 0.9% 1,000 ML IV SCH ×2 (08:58→20:45)
[2022-12-11] MEDS: DOCUSATE SODIUM 100 MG GELCAP PO SCH (08:58)
[2022-12-11] MEDS: LEVOFLOXACIN 500 MG/D5W PREMIX 100 ML IV SCH (08:58)
[2022-12-11] MEDS: LACTULOSE 20 GM/30 ML UDC PO SCH ×3 (08:59→16:49)
[2022-12-11] MEDS: SENNA 8.6 MG TAB PO SCH ×2 (08:59→20:31)
[2022-12-11] MEDS ORDERED: bisacodyL 10 MG SUPP RC PRN (12:30)
[2022-12-11 16:00] VITALS: BP 127/80
[2022-12-11] MEDS: ONDANSETRON 4 MG/2 ML VIAL IVP PRN ×2 (16:49→20:56)
--- NOTE | 2022-12-11 17:53 | NUR ---
Pt incontinent of urine and given purewick. Pt given lactulose 3 times, and other stool softners with am meds. Still no BM. Pt c/o nausea and vomiting. Zofran given. Continue with IVFs and antibiotics.
[2022-12-11 20:00] VITALS: BP 139/69
[2022-12-11] MEDS: POLYETHYLENE GLYCOL 17 GM/PKT PO SCH (20:30)
[2022-12-11] MEDS: traZODone 50 MG TAB PO SCH (20:30)
--- NOTE | 2022-12-12 02:18 | NUR ---
RECEIVED REPORT FROM RN: ISABEL TO RESUME CARE THROUGHOUT SENIOR REPORT DEVELOPER. PT IS STABLE AT THIS TIME.
[2022-12-12] MEDS: metroNIDAZOLE 500 MG/NS PREMIX 100 ML IV SCH ×3 (05:45→22:59)
[2022-12-12 05:53] VITALS: BP 122/80
--- NOTE | 2022-12-12 06:04 | NUR ---
PT DID NOT SLEEP WELL THROUGHOUT SHIFT. COMPLAINTS OF MIGRAINE. MEDICATED WITH MEDICATION BROUGHT FROM HOME. 800 ML DRAINED FROM PUREWICK. PT HAD 4 BM'S DURING SHIFT. NO OTHER PAIN STATED AT THIS TIME, NO ACUTE DISTRESS NOTED. WILL ENDORSE TO DAY SHIFT NURSE IN STABLE CONDITION.
[2022-12-12] MEDS: LEVOTHYROXINE 0.088 MG TAB PO SCH (06:19)
[2022-12-12 06:33] LABS: BASOPHILS % (AUTO) 0.3 % (0.0-2.0); EOSINOPHILS % (AUTO) 0.2 % (0.0-4.0); HEMOGLOBIN 11.1 g/dL (12.0-16.0); LYMPHOCYTES # (AUTO) 0.7 K/uL (2.5-16.5); LYMPHOCYTES % (AUTO) 9.5 % (20.5-51.1); MEAN CORPUSCULAR HEMOGLOBIN 33 pg (27-31); MEAN CORPUSCULAR HGB CONC 34 g/dL (33-37); MEAN CORPUSCULAR VOLUME 97.2 fL (80-94); MONOCYTES # (AUTO) 0.4 K/uL (0.8-1.0); MONOCYTES % (AUTO) 5.3 % (1.7-9.3); NEUTROPHILS # (AUTO) 6.2 K/uL (1.8-7.7); NEUTROPHILS % (AUTO) 84.7 % (42.2-75.2); PLATELET COUNT (AUTO) 198 K/uL (140-450); RED CELL DISTRIBUTION WIDTH 14.9 % (11.6-13.7); WHITE BLOOD COUNT (AUTO) 7.3 K/uL (4.8-10.8)
[2022-12-12 06:59] LABS: ANION GAP 10.2 (8-16); CARBON DIOXIDE 27.5 mmol/L (21-32); CREATININE 0.8 mg/dL (0.6-1.3); POTASSIUM 3.7 mmol/L (3.5-5.1)
--- NOTE | 2022-12-12 08:44 | NUR ---
PT. WITH LOW RAMONE SCALE AT MODERATE TO HIGH RISK, CONTINUE TO FOLLOW PRESSURE INJURY PREVENTION INTERVENTIONS. -POSITIONING: TURN AND REPOSITION PATIENT Q 2H OR SOONER USE PILLOWS TO KEEP BONY PROMINENCES FROM DIRECT CONTACT WITH SURFACES USE REPOSITIONING WEDGES TO PROVIDE 30-DEGREE ANGLE FOR SIDE LYING POSITIONS OFFLOADING OR FOAM DRESSING TO ALL TUBING TO PREVENT MEDICAL DEVICES RELATED PRESSURE INJURY -RE-EVALUATING AND MANAGING INCONTINENCE MONITOR SKIN CONDITION DURING POSITION CHANGE DO NOT MASSAGE REDNESS, BONY PROMINENCES FREQUENT SANTIAGO-CARE AND PROVIDE BARRIER CREAMS PRN IF SOILING MOISTURE CONTROL BY OFFER BED PARK/URINAL /ABSORBENT PAD TO WICK AND HOLD MOISTURE KEEP SKIN DRY AND PROTECT FROM FRICTION -MANAGE FRICTION/SHEAR/MOBILITY KEEP HOB AT THE LOWEST LEVEL OF ELEVATION NO MORE THAN 30 DEGREE UNLESS OTHERWISE CONTRAINDICATED USE LIFT SHEET OR TRANSFER DEVICE TO MOVE PATIENT AND PREVENT LATERAL SHEER. PROTECT HEELS, ELBOWS BONY PROMINENCES WITH SKIN BERRIES OR FOAM DRESSING IF EXPOSED TO FRICTION OFFLOAD BILATERAL HEELS BY PLACING PILLOWS UNDER CALVES AT ALL TIMES, UNLESS OTHERWISE CONTRAINDICATED -PRESSURE REDISTRIBUTION SURFACE THERAPY FE ISOFLEX MATTRESS -NUTRITION: PLEASE FOLLOW RD RECOMMENDATIONS AND OFFER NUTRITION SUPPLEMENTS IF ORDERED. PLEASE CONTACT WOUND CARE NURSE FOR ANY QUESTION AND CHANGE OF WOUND CONDITION.
[2022-12-12] MEDS: DOCUSATE SODIUM 100 MG GELCAP PO SCH (09:00)
[2022-12-12] MEDS: SENNA 8.6 MG TAB PO SCH ×2 (09:00→23:01)
[2022-12-12] MEDS: LACTULOSE 20 GM/30 ML UDC PO SCH ×3 (09:00→17:00)
[2022-12-12] MEDS: POLYETHYLENE GLYCOL 17 GM/PKT PO SCH ×2 (09:00→21:00)
[2022-12-12] MEDS: LEVOFLOXACIN 500 MG/D5W PREMIX 100 ML IV SCH (09:03)
[2022-12-12] MEDS: ASPIRIN 81 MG TAB.CHEW PO SCH (09:04)
[2022-12-12] MEDS: GABAPENTIN 100 MG CAP PO PRN (09:05)
--- NOTE | 2022-12-12 11:18 | NUR ---
DC [age] YRS OLD FEMALE PATIENT WAS ADMITTED FROM HOME WITH A DX OF ABD PAIN AND COLITIS. PATIENT HAS A HX OF FIBROMYALGIA, BIPOLAR AND SCOLIOSIS. CT ABD SHOWED SEGMENTAL WALL THICKENING AND NARROWING OF THE PROXIMAL SIGMOID COLON. RAPID COVID TEST NEGATIVE. ADMINISTERED IVF, IV ABX LEVAQUIN AND FLAGYL AND CONTINUED HOME MEDS. DC PLAN TO GO HOME WHEN STABLE. CM TO FOLLOW
[2022-12-12 11:55] VITALS: BP 99/49
[2022-12-12 12:15] VITALS: BP 110/55
[2022-12-12] MEDS: NACL 0.9% 1,000 ML IV SCH ×2 (13:59→21:45)
[2022-12-12 14:00] VITALS: BP 150/71
[2022-12-12] MEDS: ONDANSETRON 4 MG/2 ML VIAL IVP PRN (14:09)
[2022-12-12] MEDS ORDERED: ONDA-188 PO (14:58)
[2022-12-12] MEDS ORDERED: METR-435 PO (14:58)
[2022-12-12] MEDS ORDERED: LEVO750T75 PO (14:58)
--- NOTE | 2022-12-12 21:00 | NUR ---
PT REFUSE HER NIGHT MIRALAX MEDICATION. PT STATED, MIRALAX MAKE HER VOMITING. PT IV IS NOT WORKING AND ALMOST OUT, PT REFUSE A NEW IV INSERTION. SHE REFUSED FLAGYL IV MEDICATION.
[2022-12-12] MEDS: traZODone 50 MG TAB PO SCH (23:02)
[2022-12-12] MEDS: ZOLPIDEM 5 MG TAB PO PRN (23:03)
[2022-12-13] MEDS: metroNIDAZOLE 500 MG/NS PREMIX 100 ML IV SCH (05:00)
--- NOTE | 2022-12-13 05:00 | NUR ---
PT HAS NO IV ACCESS, PT REFUSE FOR A NEW IV INSERTION. FLAGYL SCHEDULED IN AM UNABLE TO ADMINISTERED.
[2022-12-13 06:30] LABS: BASOPHILS % (AUTO) 0.2 % (0.0-2.0); EOSINOPHILS % (AUTO) 0.4 % (0.0-4.0); HEMATOCRIT 36.2 % (36-48); HEMOGLOBIN 12.2 g/dL (12.0-16.0); LYMPHOCYTES # (AUTO) 1.1 K/uL (2.5-16.5); LYMPHOCYTES % (AUTO) 12.6 % (20.5-51.1); MEAN CORPUSCULAR HEMOGLOBIN 33 pg (27-31); MEAN CORPUSCULAR HGB CONC 34 g/dL (33-37); MEAN CORPUSCULAR VOLUME 96.6 fL (80-94); MONOCYTES # (AUTO) 0.5 K/uL (0.8-1.0); MONOCYTES % (AUTO) 5.4 % (1.7-9.3); NEUTROPHILS # (AUTO) 6.8 K/uL (1.8-7.7); NEUTROPHILS % (AUTO) 81.4 % (42.2-75.2); PLATELET COUNT (AUTO) 238 K/uL (140-450); RED BLOOD CELL COUNT(AUTO) 3.75 MIL/uL (4.20-5.40); RED CELL DISTRIBUTION WIDTH 14.9 % (11.6-13.7); WHITE BLOOD COUNT (AUTO) 8.4 K/uL (4.8-10.8)
[2022-12-13] MEDS: LEVOTHYROXINE 0.088 MG TAB PO SCH (06:37)
[2022-12-13 06:44] LABS: ANION GAP 15.5 (8-16); CARBON DIOXIDE 25.2 mmol/L (21-32); POTASSIUM 3.7 mmol/L (3.5-5.1)
[2022-12-13] MEDS: DOCUSATE SODIUM 100 MG GELCAP PO SCH (08:33)
[2022-12-13] MEDS: SENNA 8.6 MG TAB PO SCH (08:33)
[2022-12-13] MEDS: GABAPENTIN 100 MG CAP PO PRN (08:34)
[2022-12-13] MEDS: ASPIRIN 81 MG TAB.CHEW PO SCH (08:35)
[2022-12-13] MEDS: LACTULOSE 20 GM/30 ML UDC PO SCH (08:35)
--- NOTE | 2022-12-13 10:26 | NUR ---
PT. PICKED UP BY [facility]AK[facility] TAKEN TO HOME
--- NOTE | 2022-12-13 11:47 | NUR ---
CALLED DR SUSAN CASTILLO LOCATED AT [address] [phone]. SPOKE WITH MARGO WHO WAS ABLE TO HELP ME SCHEDULE AN APPOINTMENT FOR 12/16/2022 AT 0930. CALLED PATIENT WHO ANSWERED AND IS AWARE OF THE ABOVE INFORMATION. MEDICATION WILL BE DELIVERED TO PATIENTS HOME.
== END 2022-12-13 10:20 | disposition home or self-care (01) | DRG 249 ==
LOC: MED 15:33 → OBSVTOIN 19:46 → MMU 19:46 → MTU 20:25
PROVIDERS: ADMIT Internal Medicine; ATTEND Internal Medicine
DX: K52.9 Noninfective gastroenteritis and colitis, unspecified (principal); E43 Unspecified severe protein-calorie malnutrition; R56.9 Unspecified convulsions; M48.56XA Collapsed vertebra, not elsewhere classified, lumbar region, initial encounter for fracture; K80.20 Calculus of gallbladder without cholecystitis without obstruction; N39.0 Urinary tract infection, site not specified; K44.9 Diaphragmatic hernia without obstruction or gangrene; Z20.822 Contact with and (suspected) exposure to COVID-19; M79.7 Fibromyalgia; K59.00 Constipation, unspecified; D64.9 Anemia, unspecified; R74.01 Elevation of levels of liver transaminase levels; F31.9 Bipolar disorder, unspecified; Z88.0 Allergy status to penicillin; Z88.8 Allergy status to other drugs, medicaments and biological substances; Z79.899 Other long term (current) drug therapy; Z79.82 Long term (current) use of aspirin; Z68.27 Body mass index [BMI] 27.0-27.9, adult; M41.9 Scoliosis, unspecified
CPT/HCPCS: 36415; 80048; 80053; 81001; 82150; 83690; 83735; 85025; 87040; 87081; 87086; 96365; 96375; 99285; J0696; J1170; J1644; J1956; J2405; J3490